=== PATIENT | female | born 1975 | race Caucasian/White ===

== ENCOUNTER 2017-05-01 15:34 | Inpatient (IN) | payer OTHER ==
[~2017-05-01] VITALS: Ht 175.3 cm; Wt 53.8 kg
[~2017-05-01 15:34] MED LIST: OXYC-57 PO
[2017-05-01] MEDS ORDERED: ONDANSETRON INJ 2 MG/ML 2 ML VIAL IV STA ×2 (15:59→18:49)
[2017-05-01] MEDS ORDERED: MoRPHine SULFATE 4 MG/ML 1 ML CARP\\VIAL IV ONE (16:00)
[2017-05-01] MEDS ORDERED: SODIUM CHLORIDE 0.9% 1000ML 1,000 ML IV ONE ×2 (16:00→20:30)
[2017-05-01 16:13] LABS: BASO % 0.2 %; BASO ABS # 0.02 K/uL (0-0.2); COMPLETE YES; EOS % 0.5 %; HEMATOCRIT 47.8 % (37-47); IG% 0.1 %; LYMPH % 20.4 %; LYMPH ABS # 1.87 K/uL (1.2-3.4); MEAN CELL VOLUME 93.2 fL (80-100); MEAN CORPUSCULAR HEMOGLOBIN 31.8 pg (25-34); MEAN CORPUSCULAR HGB CONC 34.1 g/dl (32-36); MEAN PLATELET VOLUME 9.7 fL (7.4-10.4); MONO % 7.3 %; NEUT % 71.5 %; PLATELET COUNT 267 K/uL (130-400); RED BLOOD COUNT 5.13 M/uL (4.2-5.4); WHITE BLOOD COUNT 9.18 K/uL (4.8-10.8)
[2017-05-01 16:24] LABS: BUN/CREATININE RATIO 16.2 (10-20); CALCIUM 9.4 mg/dl (8.5-10.1); CREATININE 0.94 mg/dl (0.60-1.20); MAGNESIUM 2.4 mg/dl (1.8-2.4); POTASSIUM 3.9 mmol/L (3.5-5.1)
[2017-05-01] MEDS ORDERED: CALC500C70 PO (16:29)
[2017-05-01] MEDS ORDERED: MELA3TAB12 PO (16:29)
[2017-05-01] MEDS ORDERED: PRM625 PO (16:29)
[2017-05-01 16:37] LABS: URINE APPEARANCE CLEAR (CLEAR); URINE COLOR DK YELLOW; URINE NITRITE NEG (NEG); URINE PH 5.5 (4.5-7.5); URINE SPECIFIC GRAVITY 1.031 (1.000-1.030); UROBILINOGEN NEG (NEG); ZZUR CULT IF INDIC CLEAN CATCH NO
[2017-05-01 16:56] LABS: MANUAL MICROSCOPIC REQUIRED? NO; REVIEW REQ? NO; URINE BILIRUBIN NEG (NEG)
[2017-05-01] MEDS ORDERED: OPTIRAY 320 IV PRN (17:30)
--- NOTE | 2017-05-01 18:52 | DIAGNOSTIC IMAGING REPORT ---
ABDOMINAL ULTRASOUND, RIGHT UPPER QUADRANT HISTORY: Upper abdominal pain. COMPARISON: CT of the abdomen and pelvis July 26, 2011 and renal ultrasound November 06, 2013. FINDINGS: Liver is sonographically normal. There is no biliary ductal dilatation. The common bile duct measures 4 mm in caliber. The pancreatic body is normal. The head and tail are obscured by overlying bowel gas. No gallstones are identified. There is no gallbladder wall thickening. Trace pericholecystic fluid is noted. Mild to moderate right hydroureteronephrosis has improved since exam of November 06, 2013. IMPRESSION: 1. No gallstones or biliary ductal dilatation. Trace pericholecystic fluid, a nonspecific finding. 2. Mild to moderate right hydroureteronephrosis, significantly improved since renal ultrasound November 06, 2013. Electronically signed by: Dominic William M.D. 05/01/2017 6:50 PM Dictated Date/Time: 05/01/2017 6:41 PM
--- NOTE | 2017-05-01 19:29 | DIAGNOSTIC IMAGING REPORT ---
CT OF THE ABDOMEN AND PELVIS WITH CONTRAST CLINICAL HISTORY: Generalized abdominal pain. Several surgeries in past. COMPARISON STUDY: CT of the abdomen and pelvis April 28, 2011, renal ultrasound and CT of the pelvis November 06, 2013. TECHNIQUE: Following IV administration of 119 mL of Optiray-320, axial images of the abdomen and pelvis were obtained from the lung bases to the proximal femurs. Images were reviewed in the axial, sagittal, and coronal planes. IV contrast was administered without complication. A dose lowering technique was utilized adhering to the principles of ALARA. Oral contrast was administered. CT DOSE: 269.19 mGy.cm FINDINGS: A few subcentimeter hypodense hepatic lesions are too small to characterize but likely reflect cysts. No pneumatosis, free air or portal venous gas is present. The spleen, adrenal glands, left kidney and pancreas are unremarkable. There is no biliary or pancreatic ductal dilatation. Mild right hydronephrosis has significantly improved since renal ultrasound November 06, 2013. There is a small amount of abdominal and pelvic ascites. Postoperative findings consistent with a resection involving the sigmoid colon is noted. The appendix is not visualized. There are several loops of mildly dilated small bowel involving the mid mall bowel. Moderate wall thickening of several small bowel loops is noted. Contrast reaches the cecum. Therefore, there is no evidence for high-grade small bowel obstruction. Postoperative findings within the right groin are noted. There are no suspicious osseous lesions. No abscess identified within the abdomen or pelvis. Major vasculature of the abdomen and pelvis is patent. IMPRESSION: 1. Moderate wall thickening of several small bowel loops within the distal jejunum and proximal ileum. This reflects a nonspecific enteritis. Small to moderate amount of associated abdominal and pelvic ascites. Mild small bowel dilatation may reflect a low-grade partial small bowel obstruction. Oral contrast reaches the colon and therefore there is no evidence for high-grade small bowel obstruction. 2. Significant interval improvement in right hydronephrosis since prior exams. Electronically signed by: Dominic William M.D. 05/01/2017 7:27 PM Dictated Date/Time: 05/01/2017 7:11 PM
--- NOTE | 2017-05-01 21:22 | EMERGENCY ROOM VISIT NOTE ---
History First contact with patient: 15:43 Chief Complaint: ABDOMINAL PAIN Stated Complaint: ABDOMINAL PAIN, VOMITING, NAUSEA Nursing Triage Summary: Pt states abd discomfort started intermittently 3 months ago, now has abd painx 3days, vomited x2, states pain out of 10, positive BSx4, states BMs normal, skin W/D/I. positive pulses History of Present Illness The patient is a 41 year old female who presents to the Emergency Room with complaints of intermittent episodes of abdominal pain for the past few months. Over the past 2 days however the patient is having postprandial abdominal pain. She has had multiple episodes of emesis and is having difficulty tolerating food and fluids at home. The patient has been making normal bowel movements and does not report fever or chills. No recent travel history or antibiotic use. The patient has had several abdominal surgeries in the past including partial colectomy, appendectomy, hysterectomy, and ureter repair surgery. The patient went to an urgent care clinic this morning, and she was referred here because of the significant palpable tenderness on exam to the abdomen. The patient states her pain has never been this bad and she has not been taking anything [id number] for her discomfort. The pain is colicky in nature and currently rated a 2/10. Review of Systems More than 10 systems were reviewed and otherwise negative with the exception of history of present illness. Past Medical/Surgical History Medical Problems: (1) Endometriosis (2) Hydronephrosis (3) Partial bowel obstruction (4) Right salpingo-oophrectomy (5) RLQ abdominal tumor (6) RLQ abdominal tumor removal (7) Ureteral obstruction Surgical Problems: (1) Hx of appendectomy (2) S/P lumpectomy, left breast Family History Diabetes mellitus FH: cancer FH: heart disease Hypertension Kidney disease or stones Social History Smoking Status: Never Smoker Alcohol Use: occasionally Marital Status: in relationship Housing Status: lives with significant other Occupation Status: employed Current/Historical Medications Scheduled Calcium/Vitamin D (Os-Ger 500 Plus D), 2 TAB PO DAILY Estrogens, Conjugated (Premarin), 0.625 MG PO DAILY Melatonin-Pyridoxine (Melatonin), 1 TAB PO DAILY Allergies Coded Allergies: Furosemide (Verified Allergy, Unknown, Palpatations, 11/06/13) Physical Exam Vital Signs Date Time Temp Pulse Resp B/P (MAP) Pulse Ox O2 Delivery O2 Flow Rate FiO2 05/01/17 19:42 37.2 72 16 130/82 99 Room Air 05/01/17 17:15 77 16 101/77 100 Room Air 05/01/17 15:38 36.8 96 18 117/77 98 Room Air Pain Rating (0-10): 2.0 Physical Exam VITALS: Vitals are noted on the nurse's note and reviewed by myself. Vital signs stable. GENERAL: Well-developed, well-nourished, white female, who is in no acute distress and resting comfortably. Patient is cooperative with the examination. HEART: Regular rate and rhythm without murmurs gallops or rubs. LUNGS: Clear to auscultation bilaterally without wheezes, rales or rhonchi. No retractions or accessory muscle use. ABDOMEN: Positive normal bowel sounds x 4. Soft with generalized abdominal tenderness on palpation. This appears worse in the epigastrium as well as the right lower and left lower quadrants. No CVA tenderness. No evidence of peritonitis. MUSCULOSKELETAL: No muscle atrophy, erythema, or edema noted. Full range of motion without joint tenderness in all extremities. Medical Decision & Procedures ER Provider Diagnostic Interpretation: ABDOMINAL ULTRASOUND, RIGHT UPPER QUADRANT HISTORY: Upper abdominal pain. COMPARISON: CT of the abdomen and pelvis July 26, 2011 and renal ultrasound November 06, 2013. FINDINGS: Liver is sonographically normal. There is no biliary ductal dilatation. The common bile duct measures 4 mm in caliber. The pancreatic body is normal. The head and tail are obscured by overlying bowel gas. No gallstones are identified. There is no gallbladder wall thickening. Trace pericholecystic fluid is noted. Mild to moderate right hydroureteronephrosis has improved since exam of November 06, 2013. IMPRESSION: 1. No gallstones or biliary ductal dilatation. Trace pericholecystic fluid, a nonspecific finding. 2. Mild to moderate right hydroureteronephrosis, significantly improved since renal ultrasound November 06, 2013. CT OF THE ABDOMEN AND PELVIS WITH CONTRAST CLINICAL HISTORY: Generalized abdominal pain. Several surgeries in past. COMPARISON STUDY: CT of the abdomen and pelvis April 28, 2011, renal ultrasound and CT of the pelvis November 06, 2013. TECHNIQUE: Following IV administration of 119 mL of Optiray-320, axial images of the abdomen and pelvis were obtained from the lung bases to the proximal femurs. Images were reviewed in the axial, sagittal, and coronal planes. IV contrast was administered without complication. A dose lowering technique was utilized adhering to the principles of ALARA. Oral contrast was administered. CT DOSE: 269.19 mGy.cm FINDINGS: A few subcentimeter hypodense hepatic lesions are too small to characterize but likely reflect cysts. No pneumatosis, free air or portal venous gas is present. The spleen, adrenal glands, left kidney and pancreas are unremarkable. There is no biliary or pancreatic ductal dilatation. Mild right hydronephrosis has significantly improved since renal ultrasound November 06, 2013. There is a small amount of abdominal and pelvic ascites. Postoperative findings consistent with a resection involving the sigmoid colon is noted. The appendix is not visualized. There are several loops of mildly dilated small bowel involving the mid mall bowel. Moderate wall thickening of several small bowel loops is noted. Contrast reaches the cecum. Therefore, there is no evidence for high-grade small bowel obstruction. Postoperative findings within the right groin are noted. There are no suspicious osseous lesions. No abscess identified within the abdomen or pelvis. Major vasculature of the abdomen and pelvis is patent. IMPRESSION: 1. Moderate wall thickening of several small bowel loops within the distal jejunum and proximal ileum. This reflects a nonspecific enteritis. Small to moderate amount of associated abdominal and pelvic ascites. Mild small bowel dilatation may reflect a low-grade partial small bowel obstruction. Oral contrast reaches the colon and therefore there is no evidence for high-grade small bowel obstruction. 2. Significant interval improvement in right hydronephrosis since prior exams. Laboratory Results 05/01/17 15:50 Red Blood Count 5.13, Mean Corpuscular Volume 93.2, Mean Corpuscular Hemoglobin 31.8, Mean Corpuscular Hemoglobin Concent 34.1, Mean Platelet Volume 9.7, Neutrophils (%) (Auto) 71.5, Lymphocytes (%) (Auto) 20.4, Monocytes (%) (Auto) 7.3, Eosinophils (%) (Auto) 0.5, Basophils (%) (Auto) 0.2, Neutrophils # (Auto) 6.56, Lymphocytes # (Auto) 1.87, Monocytes # (Auto) 0.67, Eosinophils # (Auto) 0.05, Basophils # (Auto) 0.02 05/01/17 15:50 Test 05/01/17 15:50 05/01/17 16:09 White Blood Count 9.18 K/uL (4.8-10.8) Red Blood Count 5.13 M/uL (4.2-5.4) Hemoglobin 16.3 g/dL (12.0-16.0) Hematocrit 47.8 % (37-47) Mean Corpuscular Volume 93.2 fL (80-100) Mean Corpuscular Hemoglobin 31.8 pg (25-34) Mean Corpuscular Hemoglobin Concent 34.1 g/dl (32-36) Platelet Count 267 K/uL (130-400) Mean Platelet Volume 9.7 fL (7.4-10.4) Neutrophils (%) (Auto) 71.5 % Lymphocytes (%) (Auto) 20.4 % Monocytes (%) (Auto) 7.3 % Eosinophils (%) (Auto) 0.5 % Basophils (%) (Auto) 0.2 % Neutrophils # (Auto) 6.56 K/uL (1.4-6.5) Lymphocytes # (Auto) 1.87 K/uL (1.2-3.4) Monocytes # (Auto) 0.67 K/uL (0.11-0.59) Eosinophils # (Auto) 0.05 K/uL (0-0.5) Basophils # (Auto) 0.02 K/uL (0-0.2) RDW Standard Deviation 42.8 fL (36.4-46.3) RDW Coefficient of Variation 12.5 % (11.5-14.5) Immature Granulocyte % (Auto) 0.1 % Immature Granulocyte # (Auto) 0.01 K/uL (0.00-0.02) Anion Gap 2.0 mmol/L (3-11) Est Creatinine Clear Calc Drug Dose 68.2 ml/min Estimated GFR () 88.6 Estimated GFR (Non- 76.4 BUN/Creatinine Ratio 16.2 (10-20) Calcium Level 9.4 mg/dl (8.5-10.1) Magnesium Level 2.4 mg/dl (1.8-2.4) Total Bilirubin 0.6 mg/dl (0.2-1) Aspartate Amino Transf (AST/SGOT) 14 U/L (15-37) Alanine Aminotransferase (ALT/SGPT) 20 U/L (12-78) Alkaline Phosphatase 44 U/L (45-117) Total Protein 8.4 gm/dl (6.4-8.2) Albumin 4.2 gm/dl (3.4-5.0) Globulin 4.2 gm/dl (2.5-4.0) Albumin/Globulin Ratio 1.0 (0.9-2) Lipase 116 U/L (73-393) Urine Color DK YELLOW Urine Appearance CLEAR (CLEAR) Urine pH 5.5 (4.5-7.5) Urine Specific [place] 1.031 (1.000-1.030) Urine Protein NEG (NEG) Urine Glucose (UA) NEG (NEG) Urine Ketones 2+ (NEG) Urine Occult Blood NEG (NEG) Urine Nitrite NEG (NEG) Urine Bilirubin NEG (NEG) Urine Urobilinogen NEG (NEG) Urine Leukocyte Esterase NEG (NEG) Medications Administered Medications (Trade) Dose Ordered Sig/Jesica Route Start Time Stop Time Status Last Admin Dose Admin Morphine Sulfate (MoRPHine SULFATE INJ) 4 mg NOW ONCE IV 05/01/17 16:00 05/01/17 16:07 DC 05/01/17 16:23 4 MG Sodium Chloride 1,000 ml @ 999 mls/hr Q1H1M ONCE IV 05/01/17 16:00 05/01/17 17:00 DC 05/01/17 16:00 999 MLS/HR Ondansetron HCl (Zofran Inj) 4 mg NOW STAT IV 05/01/17 15:59 05/01/17 16:07 DC 05/01/17 16:22 4 MG Ondansetron HCl (Zofran Inj) 4 mg NOW STAT IV 05/01/17 18:49 05/01/17 18:51 DC 05/01/17 18:56 4 MG Sodium Chloride 1,000 ml @ 999 mls/hr Q1H1M ONCE IV 05/01/17 20:30 05/01/17 21:30 05/01/17 20:51 999 MLS/HR ED Course Physical exam and history were performed. Nursing notes, EMR, and Medication List were personally reviewed. Patient appears to have generalized abdominal pain worsening over the past 2 days. She is having difficulty eating and drinking because of her discomfort. IV access was established and labs were obtained. The patient was hydrated medicated as above. She has a history of several abdominal surgeries in the past, but does have her gallbladder. Because of the postprandial pain I did elect to perform an upper abdominal ultrasound. I also elected to perform a CT scan with contrast. The patient's blood work is as above and was reviewed. She does not have a significantly elevated white blood cell count, gross anemia, bandemia, or significant elect to light imbalance. She may actually have some hemoconcentration secondary to dehydration as she has not been eating or drinking well. Lipase and transaminases are nondiagnostic. Urine is without obvious signs of infection. The ultrasound did show some trace pericholecystic fluid but no obvious cholecystitis. CT scan shows enteritis including the jejunum and ileum, as well as a likely partial small bowel obstruction. Clinically this does correlate with the patient's symptoms. I discussed the case with both my attending physician, Dr. Hayward, and with the on-call surgeon, Dr. Boyer. We suspect the patient's symptoms will worsen with eating, and she will need to remain nothing by mouth. The patient is not felt to be an emergent surgical candidate, and Dr. Boyer will follow as consult. I did discuss the case with the on-call hospitalist, who agreed to evaluate the patient here in the department for further care and management. Please see their dictation for further patient course, plan, and disposition. The chart was completed utilizing [employer] Speech Voice Recognition Software. Grammatical errors, random word insertions, pronoun errors, and incomplete sentences are an occasional consequence of this system due to software limitations, ambient noise, and hardware issues. Any formal questions or concerns about the content, text, or information contained within the body of this dictation should be directly addressed to the provider for clarification. . Medical Decision Differential diagnosis: Etiologies such as appendicitis, diverticulitis, PUD, biliary pathology, UTI, pancreatitis, obstruction, mesenteric ischemia, aortic pathology, infections, inflammatory bowel disease, renal colic, as well as others were entertained. Impression Primary Impression: Partial bowel obstruction Additional Impressions: Enteritis Abdominal pain Nausea and vomiting Departure Information Referrals Josefina Colón D.O. (PCP) Patient Instructions My [facility] Problem Qualifiers
[2017-05-01] MEDS ORDERED: ZOLPIDEM TARTRATE 5 MG TAB PO PRN (21:30)
[2017-05-01] MEDS ORDERED: ONDANSETRON INJ 2 MG/ML 2 ML VIAL IV PRN (21:30)
[2017-05-01] MEDS ORDERED: POLYETHYLENE (MIRALAX) 17 GM PACK PO PRN (21:30)
[2017-05-01] MEDS ORDERED: MoRPHine SULFATE 2 MG/ML CARP IV PRN (21:45)
[2017-05-01] MEDS ORDERED: BISACODYL 10 MG SUPP PR PRN (21:45)
[2017-05-01 21:48] VITALS: O2SAT 98
[2017-05-01 22:35] VITALS: BP 115/74; PULSE 69; O2SAT 96
--- NOTE | 2017-05-01 22:42 | History and Physical ---
History & Physical Date & Time of Service: May 01, 2017 at 22:16 Chief Complaint: Abdominal Pain, Vomiting, Nausea Primary Care Physician: Josefina Colón D.O. History of Present Illness Source: patient This is a 41yo female with a PMH of multiple abdominal surgeries who presents with intermittent episodes diffuse abdominal pain x 3 days. Describes the pain as burning epigastric pain that radiates downward to LLQ, RLQ and suprapubic area in waves. Pain is a 3/10 in between episodes and is an 8/10 during episodes. Worse with positional changes and after eating. Denies having abdominal pain of this severity in the past. Has not been taking OTC pain medications at home. Associated symptoms include nausea, 2 episodes of vomiting this morning and decreased appetite. Last BM was this morning, which was described as small and hard. No hematochezia. Previous abdominal surgeries include hysterectomy, partial colectomy, ureter reconstruction related to endometriosis, appendectomy. Denies fever, chills, lightheadedness, CP, SOB, hematemesis, melena, diarrhea, LE weakness or swelling. Past Medical/Surgical History Medical Problems: (1) Endometriosis Status: Chronic (2) Hydronephrosis Status: Chronic (3) Partial bowel obstruction Status: Resolved (4) Right salpingo-oophrectomy Status: Resolved (5) RLQ abdominal tumor Status: Resolved (6) RLQ abdominal tumor removal Status: Resolved (7) Ureteral obstruction Status: Chronic Surgical Problems: (1) Hx of appendectomy Status: Resolved (2) S/P lumpectomy, left breast Status: Resolved Family History Diabetes mellitus FH: cancer FH: heart disease Hypertension Kidney disease or stones Social History Smoking Status: Never Smoker Marital Status: in relationship Occupational Status: employed Allergies Coded Allergies: Furosemide (Verified Allergy, Unknown, Palpatations, 11/06/13) Home Medications Scheduled Calcium/Vitamin D (Os-Ger 500 Plus D), 2 TAB PO DAILY Estrogens, Conjugated (Premarin), 0.625 MG PO DAILY Melatonin-Pyridoxine (Melatonin), 1 TAB PO DAILY Review of Systems Ten systems reviewed and negative except as noted in the HPI. Physical Exam Vital Signs Date Time Temp Pulse Resp B/P (MAP) Pulse Ox O2 Delivery O2 Flow Rate FiO2 05/01/17 21:48 36.6 78 18 121/73 98 Room Air 05/01/17 19:42 37.2 72 16 130/82 99 Room Air 05/01/17 17:15 77 16 101/77 100 Room Air 05/01/17 15:38 36.8 96 18 117/77 98 Room Air General Appearance: + moderate distress (Grimaces intermittently, cooperative with exam. ) Head: normocephalic, atraumatic Eyes: normal inspection, PERRL ENT: hearing grossly normal Neck: supple, no adenopathy, thyroid normal, trachea midline Respiratory/Chest: chest non-tender, lungs clear, normal breath sounds, no respiratory distress, no accessory muscle use Cardiovascular: regular rate, rhythm, no murmur, normal peripheral pulses Abdomen/GI: normal bowel sounds (Decreased bowel sounds but present in all 4 quadrants ), soft, no organomegaly, + tenderness (Diffusely TTP. Most tender in LLQ, RLQ, suprapubic area. ) Back: normal inspection, no CVA tenderness Extremities/Musculoskelatal: normal inspection, no calf tenderness, normal capillary refill, no pedal edema Neurologic/Psych: no motor/sensory deficits, alert, normal mood/affect, oriented x 3 Skin: normal color, warm/dry, no rash Diagnostics Laboratory Results Results Past 24 Hours Test 05/01/17 15:50 05/01/17 16:09 Range/Units White Blood Count 9.18 4.8-10.8 K/uL Red Blood Count 5.13 4.2-5.4 M/uL Hemoglobin 16.3 12.0-16.0 g/dL Hematocrit 47.8 37-47 % Mean Corpuscular Volume 93.2 80-100 fL Mean Corpuscular Hemoglobin 31.8 25-34 pg Mean Corpuscular Hemoglobin Concent 34.1 32-36 g/dl Platelet Count 267 130-400 K/uL Mean Platelet Volume 9.7 7.4-10.4 fL Neutrophils (%) (Auto) 71.5 % Lymphocytes (%) (Auto) 20.4 % Monocytes (%) (Auto) 7.3 % Eosinophils (%) (Auto) 0.5 % Basophils (%) (Auto) 0.2 % Neutrophils # (Auto) 6.56 1.4-6.5 K/uL Lymphocytes # (Auto) 1.87 1.2-3.4 K/uL Monocytes # (Auto) 0.67 0.11-0.59 K/uL Eosinophils # (Auto) 0.05 0-0.5 K/uL Basophils # (Auto) 0.02 0-0.2 K/uL RDW Standard Deviation 42.8 36.4-46.3 fL RDW Coefficient of Variation 12.5 11.5-14.5 % Immature Granulocyte % (Auto) 0.1 % Immature Granulocyte # (Auto) 0.01 0.00-0.02 K/uL Sodium Level 136 136-145 mmol/L Potassium Level 3.9 3.5-5.1 mmol/L Chloride Level 102 98-107 mmol/L Carbon Dioxide Level 32 21-32 mmol/L Anion Gap 2.0 3-11 mmol/L Blood Urea Nitrogen 15 7-18 mg/dl Creatinine 0.94 0.60-1.20 mg/dl Est Creatinine Clear Calc Drug Dose 68.2 ml/min Estimated GFR () 88.6 Estimated GFR (Non- 76.4 BUN/Creatinine Ratio 16.2 10-20 Random Glucose 101 70-99 mg/dl Calcium Level 9.4 8.5-10.1 mg/dl Magnesium Level 2.4 1.8-2.4 mg/dl Total Bilirubin 0.6 0.2-1 mg/dl Aspartate Amino Transf (AST/SGOT) 14 15-37 U/L Alanine Aminotransferase (ALT/SGPT) 20 12-78 U/L Alkaline Phosphatase 44 45-117 U/L Total Protein 8.4 6.4-8.2 gm/dl Albumin 4.2 3.4-5.0 gm/dl Globulin 4.2 2.5-4.0 gm/dl Albumin/Globulin Ratio 1.0 0.9-2 Lipase 116 73-393 U/L Urine Color DK YELLOW Urine Appearance CLEAR CLEAR Urine pH 5.5 4.5-7.5 Urine Specific [place] 1.031 1.000-1.030 Urine Protein NEG NEG Urine Glucose (UA) NEG NEG Urine Ketones 2+ NEG Urine Occult Blood NEG NEG Urine Nitrite NEG NEG Urine Bilirubin NEG NEG Urine Urobilinogen NEG NEG Urine Leukocyte Esterase NEG NEG Diagnostic Radiology CT Abd/pelvis: 1. Moderate wall thickening of several small bowel loops within the distal jejunum and proximal ileum. This reflects a nonspecific enteritis. Small to moderate amount of associated abdominal and pelvic ascites. Mild small bowel dilatation may reflect a low-grade partial small bowel obstruction. Oral contrast reaches the colon and therefore there is no evidence for high-grade small bowel obstruction. 2. Significant interval improvement in right hydronephrosis since prior exams. RUQ Ultrasound: IMPRESSION: 1. No gallstones or biliary ductal dilatation. Trace pericholecystic fluid, a nonspecific finding. 2. Mild to moderate right hydroureteronephrosis, significantly improved since renal ultrasound November 06, 2013. Impression Assessment and Plan This is a 41yo female with a PMH of multiple abdominal surgeries who presents with intermittent episodes diffuse abdominal pain x 3 days. Possible partial SBO: -CT abd/pelvis: Mild small bowel dilatation may reflect a low-grade partial small bowel obstruction -Consulted GI, Dr. Boyer to evaluate tomorrow -Continue IVF -Morphine for pain mgmt -Zofran for nausea -NPO -Monitor electrolytes DVT Ppx: dayana obando Code status: FULL PCP: [place] Dispo: Plan to return home once medically stable Attending addendum: Agree with the above H&P; please refer to above for more detail Patient is a 41 yo female who presents to the hospital for complaints of abdominal pain and nausea/vomiting that were initially intermittent for the past 3 days but has now progressed to constant pain with waves of more severe pain radiating down her abdomen. She denies any changes to her bowel habits. She states that she had multiple abdominal surgeries in the past due to severe endometriosis. Cardiac: RR, S1 and S2 auscultated Resp: CTA B/L GI: slightly distended, mildly tender diffusely, hypoactive bowel sounds; no hepatosplenomegaly Partial SBO: -begin with conservative treatment; NPO, IV fluids, pain control -Surgery consult -NG tube if nausea/vomiting and abdominal pain worsen overnight VTE Prophylaxis VTE Risk Assessment Done? Y/N: Yes Risk Level: Low
[2017-05-01] MEDS: SODIUM CHLORIDE 0.9% 1000ML 1,000 ML IV SCH (22:43)
[2017-05-02 00:14] VITALS: Ht 175.3 cm; Wt 53.8 kg
[2017-05-02 06:05] LABS: HEMATOCRIT 37.6 % (37-47); MEAN CELL VOLUME 92.4 fL (80-100); MEAN CORPUSCULAR HEMOGLOBIN 31.7 pg (25-34); MEAN CORPUSCULAR HGB CONC 34.3 g/dl (32-36); MEAN PLATELET VOLUME 9.4 fL (7.4-10.4); PLATELET COUNT 178 K/uL (130-400); RED BLOOD COUNT 4.07 M/uL (4.2-5.4); WHITE BLOOD COUNT 6.36 K/uL (4.8-10.8)
[2017-05-02 06:33] LABS: BUN/CREATININE RATIO 13.4 (10-20); CREATININE 0.7 mg/dl (0.60-1.20); MAGNESIUM 2.2 mg/dl (1.8-2.4); POTASSIUM 3.9 mmol/L (3.5-5.1)
[2017-05-02 07:31] VITALS: BP 105/69; PULSE 70; TEMP 36.9; O2SAT 96
[2017-05-02] MEDS: SODIUM CHLORIDE 0.9% 1000ML 1,000 ML IV SCH ×2 (07:35→17:36)
--- NOTE | 2017-05-02 07:49 | SURGICAL CONSULTATION ---
DATE OF CONSULTATION: 05/02/2017 DATE OF CONSULTATION: 05/02/2017 SUMMARY: I was called by Seferino Mederos , physician product development assistant in the ER approximately 8:00 last night for over the phone advice on Desire who came into the Emergency Room intermittent episodes of abdominal pain in the last few months. Yesterday became more severe. The patient has had multiple abdominal surgeries including appendectomy, colectomy, hysterectomy and uterine repair. They obtained a CAT scan of the abdomen at the time and found to have maybe a segment of small bowel enteritis and could not rule out a partial obstruction, but really things went through without any problem. His concern with my advice was to keep her in the hospital or send her home. He was thinking to send her home. I felt that given her extended history and the severity of the pain that she first came in I recommended that she be admitted to the medical service and possibly get gastroenterology involved. The patient was admitted to the medical service and we were asked to see her. Desire is a very pleasant 41-year-old female who had extensive surgery for endometriomas, first one in [place], second one was done extensively at [facility] where pretty much they completely extensive debulking procedure including a sigmoid colon resection. Prior to that and after that she has had colonoscopy by Dr. Dillon for area on the sigmoid colon. This was about a year and a half ago because her stools were getting smaller and apparently no pathology was found. In the last 3-4 months, she has had intermittent bouts of abdominal pain and really not associated with any specific oral intake, but yesterday the pain was a little bit more severe. She had multiple emesis. PAST SURGICAL HISTORY: Including endometriosis, hydronephrosis, she had right ureter repair due to the obstruction, right salpingo-oophorectomy, hysterectomy, appendectomy, status post lumpectomy left breast. She occasionally uses alcohol but a nonsmoker. PHYSICAL EXAMINATION: GENERAL: As I see her this morning Desire feels a little bit better than she had last night. The pain has subsided. VITAL SIGNS: Her last vitals showed a temperature of 36.9, pulse 69, respirations 16, blood pressure 115/74, O2 sats 96 on room air. She is lying comfortably in bed with no acute distress at this time. She is well hydrated. NECK: No cervical lymphadenopathy obviously. ABDOMEN: Completely benign. She has a midline incision with no evidence of any hernias, although just barely touching her abdominal wall she is experiencing some pain. LABORATORY: She had last night showed a white count 9.18. She had a slight left shift. Chemistry showed a BUN of 15, creatinine 0.94. This morning her BUN is 9, creatinine 0.70. A CAT scan was reviewed. PLAN: At this point, I will order an upper GI with small bowel follow through to visualize more of the enteritis seen by CAT scan but there is nothing surgical that needs to be done at this time and I would strongly recommend as I recommended last night to have GI see the patient also. She has never really followed up from gynecology point of view for the endometriomas that she had in the past. We will follow along with you. RUTHIE
--- NOTE | 2017-05-02 08:14 | DIAGNOSTIC IMAGING REPORT ---
KUB CLINICAL HISTORY: Assess for retained enteric contrast prior to performing small bowel follow-through. FINDINGS: An AP supine abdominal radiograph is correlated with abdominal CT dated 05/01/2017. There is a nonobstructed abdominal bowel gas pattern. There is significant retained enteric contrast throughout the colon. Surgical clips are seen in the right lower quadrant. The bony structures appear intact. IMPRESSION: 1. There is retained enteric contrast throughout the colon. Small bowel follow-through was deferred. 2. There is no radiographic evidence of bowel obstruction. Electronically signed by: Josh Sales M.D. 05/02/2017 8:13 AM Dictated Date/Time: 05/02/2017 8:11 AM
[2017-05-02] MEDS ORDERED: ACETAMINOPHEN 325 MG TAB PO PRN (14:30)
--- NOTE | 2017-05-02 15:09 | Progress Note ---
Progress Note Date of Service May 02, 2017. (Shani Roth CRNP) Progress Note GI consulted to see pt for abd pain. I went to pt's room and found that she is currently undergoing pelvic ultrasound procedure. Will see her tomorrow instead. I did review her chart and labs/imaging studies. In short this is a 41 y/o female w hx of multiple abd surgeries including appendectomy, uterine repair , hysterectomy, endometriosis debulking at [facility] resulting in sigmoid colectomy who presented w c/o lower abd pain. Pain worse w positional changes and eating. She has nausea, vomiting, also constipation symptoms. CBC, CMP grossly unremarkable. Gallbladder u/s w/o signs of cholecystitis, gallstones or CBD dilation. Does have known R hydronephrosis. CT abd/pelvis showed moderate wall thickening of several small bowel loops within the distal jejunum and proximal ileum. This reflects a nonspecific enteritis. Small to moderate amount of associated abdominal and pelvic ascites. Mild small bowel dilatation may reflect a low-grade partial small bowel obstruction. Oral contrast reaches the colon and therefore there is no evidence for high-grade small bowel obstruction. General Surgery (Dr. Boyer) has been consulted, recommended SBFT exam. KUB this AM showed contrast still in colon thus SBFT exam deferred. Pls keep her NPO for now. Avoid narcotics. Repeat KUB in AM. Agree w SBFT exam. Will see her tomorrow. (Shani Roth CRNP)
[2017-05-02 15:18] LABS: PREG INTERNAL NEGATIVE QC NEG CLEAR BACKGROUND; PREG INTERNAL POSITIVE QC POS CONTROL LINE
[2017-05-02 16:00] VITALS: BP 118/74; PULSE 74; TEMP 36.5; O2SAT 98
--- NOTE | 2017-05-02 17:42 | Progress Note ---
Internal Med Progress Note Date of Service: May 02, 2017. Provider Documentation: SUBJECTIVE: patient examined at bedside reports periodically of feeling abdominal discomfort. abdominal discomfort since 3 days ago. not in acute distress. able to sit up and cooperate on exam without pain exacerbation. denies vomiting. denies diarrhea. denies fevers. has minimal per oral intake but able to keep food down when eating. has chronic discomfort with urination but no increase with recent abdominal symptoms. Exam: General-NAD, speaking in full sentences Eyes- EOMI, no jaundice ENT-nontender, no oral or nasal exudates Neck- nontender, no JVD Lungs- no crackles, no wheezing on lung auscultation. no use of accessory muscles Heart- regular rate, S1, S2 Abdomen- soft, no rebound tenderness, tenderness on deep palpation especially towards bladder Extremities- no edema of extremities Neuro- AO x 3 ASSESSMENT & PLAN: A/P: 41 year old F with multiple abdominal surgeries secondary to endometriosis and reports that her surgeries has also been performed on tract here for abdominal pain with suspicion for low-grade partial small bowel obstruction CT abdomen 1. Moderate wall thickening of several small bowel loops within the distal jejunum and proximal ileum. This reflects a nonspecific enteritis. Small to moderate amount of associated abdominal and pelvic ascites. Mild small bowel dilatation may reflect a low-grade partial small bowel obstruction. Oral contrast reaches the colon and therefore there is no evidence for high-grade small bowel obstruction. 2. Significant interval improvement in right hydronephrosis since prior exams. US gallbladder 1. No gallstones or biliary ductal dilatation. Trace pericholecystic fluid, a nonspecific finding. 2. Mild to moderate right hydroureteronephrosis, significantly improved since renal ultrasound November 06, 2013. KUB 1. There is retained enteric contrast throughout the colon. Small bowel follow-through was deferred. 2. There is no radiographic evidence of bowel obstruction. Small bowel follow through could not be performed because patient retaining contrast from CT abdomen test. GI recommends to redo the small bowel follow through and keep NPO until next AM No general Surgery interventions at this time Continue supportive care, antiemetics, GI service prefers to avoid giving narcotics to patient DVT prophylaxis SCDs Vital Signs: Date Time Temp Pulse Resp B/P (MAP) Pulse Ox O2 Delivery O2 Flow Rate FiO2 05/02/17 16:00 36.5 74 16 118/74 (89) 98 Room Air 05/02/17 07:31 36.9 70 16 105/69 (81) 96 Room Air 05/02/17 07:30 Room Air 05/02/17 00:14 Room Air 05/02/17 00:14 Room Air 05/01/17 22:35 69 16 115/74 (88) 96 Room Air 05/01/17 21:48 36.6 78 18 121/73 98 Room Air 05/01/17 19:42 37.2 72 16 130/82 99 Room Air Lab Results: Results Past 24 Hours Test 05/02/17 05:37 05/02/17 14:40 Range/Units White Blood Count 6.36 4.8-10.8 K/uL Red Blood Count 4.07 4.2-5.4 M/uL Hemoglobin 12.9 12.0-16.0 g/dL Hematocrit 37.6 37-47 % Mean Corpuscular Volume 92.4 80-100 fL Mean Corpuscular Hemoglobin 31.7 25-34 pg Mean Corpuscular Hemoglobin Concent 34.3 32-36 g/dl RDW Standard Deviation 42.9 36.4-46.3 fL RDW Coefficient of Variation 12.6 11.5-14.5 % Platelet Count 178 130-400 K/uL Mean Platelet Volume 9.4 7.4-10.4 fL Sodium Level 141 136-145 mmol/L Potassium Level 3.9 3.5-5.1 mmol/L Chloride Level 109 98-107 mmol/L Carbon Dioxide Level 26 21-32 mmol/L Anion Gap 6.0 3-11 mmol/L Blood Urea Nitrogen 9 7-18 mg/dl Creatinine 0.70 0.60-1.20 mg/dl Est Creatinine Clear Calc Drug Dose 91.6 ml/min Estimated GFR () 126.5 Estimated GFR (Non- 109.1 BUN/Creatinine Ratio 13.4 10-20 Random Glucose 99 70-99 mg/dl Calcium Level 8.0 8.5-10.1 mg/dl Magnesium Level 2.2 1.8-2.4 mg/dl Total Bilirubin 0.6 0.2-1 mg/dl Aspartate Amino Transf (AST/SGOT) 9 15-37 U/L Alanine Aminotransferase (ALT/SGPT) 15 12-78 U/L Alkaline Phosphatase 31 45-117 U/L Total Protein 6.1 6.4-8.2 gm/dl Albumin 3.0 3.4-5.0 gm/dl Globulin 3.1 2.5-4.0 gm/dl Albumin/Globulin Ratio 1.0 0.9-2 Human Chorionic Gonadotropin, Qual NEG NEG
[2017-05-02] MEDS ORDERED: ESTROGENS, CONJUGATED 0.625 MG TAB PO SCH (19:00)
[2017-05-02] MEDS ORDERED: NURSING VERBAL MED ORDER ONE (19:15)
[2017-05-02 23:00] VITALS: BP 101/55; PULSE 79; TEMP 36.8; O2SAT 96
[2017-05-03] MEDS: SODIUM CHLORIDE 0.9% 1000ML 1,000 ML IV SCH ×2 (02:40→12:35)
[2017-05-03 07:18] VITALS: BP 101/64; PULSE 75; TEMP 36.7; O2SAT 96
--- NOTE | 2017-05-03 08:01 | DIAGNOSTIC IMAGING REPORT ---
KUB CLINICAL HISTORY: Assess for retained enteric contrast prior to performing small COMPARISON STUDY: 05/02/2017 FINDINGS: Postsurgical changes are visualized. There is a surgical anastomotic suture line within the pelvis. There are right lower quadrant surgical clips. There is extensive contrast within nondilated colon. This would preclude optimal small bowel study. IMPRESSION: Persistent extensive contrast within the colon. This would preclude an optimal small bowel study. Electronically signed by: Sea Ireland M.D. 05/03/2017 8:00 AM Dictated Date/Time: 05/03/2017 7:58 AM
--- NOTE | 2017-05-03 08:32 | Surgery Progress Note ---
Surgery Progress Note Date of Service May 03, 2017. Subjective + feeling well, No nausea Objective Vital Signs: Date Time Temp Pulse Resp B/P (MAP) Pulse Ox O2 Delivery O2 Flow Rate FiO2 05/03/17 07:25 Room Air 05/03/17 07:18 36.7 75 16 101/64 (76) 96 Room Air 05/02/17 23:47 Room Air 05/02/17 23:00 36.8 79 16 101/55 (70) 96 Room Air 05/02/17 16:15 Room Air 05/02/17 16:00 36.5 74 16 118/74 (89) 98 Room Air Abdomen: non distended Laboratory Results: Results Past 24 Hours Test 05/02/17 14:40 Range/Units Human Chorionic Gonadotropin, Qual NEG NEG Diagnostic Interpretation: KUB CLINICAL HISTORY: Assess for retained enteric contrast prior to performing small COMPARISON STUDY: 05/02/2017 FINDINGS: Postsurgical changes are visualized. There is a surgical anastomotic suture line within the pelvis. There are right lower quadrant surgical clips. There is extensive contrast within nondilated colon. This would preclude optimal small bowel study. IMPRESSION: Persistent extensive contrast within the colon. This would preclude an optimal small bowel study. Electronically signed by: Sea Ireland M.D. 05/03/2017 8:00 AM Dictated Date/Time: 05/03/2017 7:58 AM Assessment & Plan enteritis improving residual contrast on KUB, no urgency for SBFT, can be done as an outpatient will start on diet, advance as tolerated seen with Dr. Boyer
[2017-05-03] MEDS ORDERED: ESTROGENS, CONJUGATED 0.625 MG TAB PO SCH (09:00)
--- NOTE | 2017-05-03 12:28 | Gastrointestinal Consultation ---
Gastrointestinal Consultation Date of Consultation: May 03, 2017 Attending Physician: Herrera Conti Consulting Physician: Rodney Dillon Reason for Consultation: Abd pain History of Present Illness Patient is a 41 year old female who presented to ED w c/o abd pain x 3 days prior to admission. For the last 2 months she started having waves of crampy abd pain which started from mid upper abd area then radiates down to bilateral lower quadrants. These pain would last for 30 mins then resolved. However the pain she experienced 3 days ago would not relent. She has mild nausea, no vomiting. Does have constipation on baseline but still moves bowels about once to twice a day. Upon eval in ED, labs looks grossly unremarkable, gallbladder u/ s w/o acute findings. However CT abd/pelvis showed small bowel dilation consistent w non specific enteritis and low grade partial small obstruction. Pt has hx of extensive abd surgeries including total hysterectomy, partial colectomy, appendectomy, endometriosis and scar tissue debulking procedures done at [facility]. She is not on any routine bowel regimen at home. She is passing some flatus, able to move bowels a few times yesterday. No blood in stools. She denies any abd pain, n/v today. She is tolerating diet well, desires to go home. Denies any illicit substance abuses, family or personal hx of IBD, autoimmune diseases. Past Medical/Surgical History Medical Problems: (1) Abdominal pain Status: Acute (2) Enteritis Status: Acute (3) Nausea and vomiting Status: Acute Past Medical History: See above, ureteral obstructions, Past Surgical History: See above, also L breast lumpectomy Family History Diabetes mellitus FH: cancer FH: heart disease Hypertension Kidney disease or stones Social History Smoking Status: Never Smoker Alcohol Use: occasionally Marital Status: in relationship Housing Status: lives with significant other Occupation Status: employed Allergies Coded Allergies: Furosemide (Verified Allergy, Unknown, Palpatations, 11/06/13) Current Medications Home Meds and Scripts Medications Dose Route/Sig Max Daily Dose Days Date Category Melatonin (Melatonin-Pyridoxine) 1 Tab Tab 1 Tab PO DAILY 05/01/17 Reported Os-Ger 500 Plus D (Calcium/Vitamin D) Tab 2 Tab PO DAILY 05/01/17 Reported Premarin (Estrogens Conjugated) 0.625 Mg Tab 0.625 Mg PO DAILY 05/01/17 Reported Review of Systems Constitutional: No fever, No chills Respiratory: No cough, No shortness of breath Cardiac: No chest pain Abdomen: + constipation, No pain, No nausea, No vomiting Physical Exam Date Time Temp Pulse Resp B/P (MAP) Pulse Ox O2 Delivery O2 Flow Rate FiO2 05/03/17 07:25 Room Air 05/03/17 07:18 36.7 75 16 101/64 (76) 96 Room Air 05/02/17 23:47 Room Air 05/02/17 23:00 36.8 79 16 101/55 (70) 96 Room Air 05/02/17 16:15 Room Air 05/02/17 16:00 36.5 74 16 118/74 (89) 98 Room Air General Appearance: no apparent distress, + thin Eyes: normal inspection, PERRL, EOMI Neck: supple, no JVD, trachea midline Respiratory/Chest: normal breath sounds, no respiratory distress, no accessory muscle use Cardiovascular: regular rate, rhythm, no gallop, no murmur Abdomen: normal bowel sounds, non tender, soft Extremities: normal inspection, no pedal edema, no calf tenderness Neurologic/Psych: alert, normal mood/affect, oriented x 3 Skin: normal color, no jaundice, no rash Laboratory Results Last 24 Hours Test 05/02/17 14:40 05/03/17 11:41 Human Chorionic Gonadotropin, Qual NEG Impression Patient is a 41 year old female w abd pain, CT finding of partial small bowel obstruction. ? enteritis though this is not likely given no diarrhea. She has hx of endometriosis, s/p multiple abd surgeries and debulking procedures due to endometriosis complications as noted in HPI above. Suspect scar tissue involvement related to her PSBO. Currently pain free, also denies any n/v. Moving bowels though small stools, passing some flatus. Abd exam benign, + bowel sounds. Plan - Advance diet as tolerated but would recommend low residue/fiber diet. - OK for DC home from GI standpoint w bowel regimen of Miralax 17g daily and Bisacodyl 10mg qHS. Would help set up MR enterography to be done in outpt setting 1 week's time, and small bowel enteroscopy in 2 week's time. - C1q esterase inhibitor lab obtained today to r/o angioedema. I have seen, examined and agree with the plan as outlined by MICHAEL Peraza as above. -exam reveals soft abd
[2017-05-03] MEDS ORDERED: POLY335019 PO (14:56)
[2017-05-03] MEDS ORDERED: BISA1SUP4 PR (14:56)
--- NOTE | 2017-05-03 15:00 | Discharge Instructions ---
Discharge Instructions Date of Service May 03, 2017. Admission Reason for Admission: Abdominal Pain, Constipation Discharge Discharge Diagnosis / Problem: partial SBO Discharge Goals Goal(s): Prevent Disease Progression Activity Recommendations Activity Limitations: per Instructions/Follow-up section . Instructions / Follow-Up Instructions / Follow-Up Please take all medications as instructed. Miralax and Bisacodyl suppositories have been provided to you for constipation to use as needed. You have a follow-up appointment with Dr. Colón on 05/10@ 9:35am for follow-up from this hospitalization. Additionally you will be contacted by the [facility] Gastroenterology office to setup your MRI exam as outpatient. Dr. Rodney Dillon and MICHAEL Du saw you in the hospital. It was a pleasure taking care of you! Call if you have any questions or problems. You can reach a [facility] hospitalist on duty at [facility] 24 hours a day by calling [phone]. Take care of yourself. Louisa Forrest, [facility] Center[facility] Current Hospital Diet Patient's current hospital diet: Full Liquid Diet Discharge Diet Recommended Diet: Low Fiber Diet Pending Studies Studies pending at discharge: yes List of pending studies: C1 esterase inhibitor Medical Emergencies . Who to Call and When: Medical Emergencies: If at any time you feel your situation is an emergency, please call 911 immediately. . Non-Emergent Contact Non-Emergency issues call your: Primary Care Provider . . "Provider Documentation" section prepared by Louisa Forrest. . VTE Core Measure Inpt VTE Proph given/why not?: SCD's
[2017-05-03 16:15] VITALS: BP 101/64; PULSE 75; TEMP 36.7; O2SAT 96
--- NOTE | 2017-05-04 23:07 | Discharge Summary ---
Discharge Summary Date of Service May 04, 2017. Discharge Summary Admission Date: May 01, 2017 at 21:26 Discharge Date: May 03, 2017 Discharge Disposition: Home Principal Diagnosis: Abdominal pain 2/2 partial SBO Procedures: None. Vaccinations: None. Consultations: GI General Surgery Pending Studies/Follow-Up: see instructions below. Medication Reconciliation New Medications: Bisacodyl (Bisacodyl Laxative) 10 Mg Sup 10 MG HI HS PRN for Constipation for 10 Days, #10 SUPP 3 Refills Polyethylene Glycol 3350 (Miralax) 1 Pow Pow 17 GM PO DAILY, #527 GM Continued Medications: Calcium/Vitamin D (Os-Ger 500 Plus D) Tab 2 TAB PO DAILY, TAB Estrogens, Conjugated (Premarin) 0.625 Mg Tab 0.625 MG PO DAILY, TAB Melatonin-Pyridoxine (Melatonin) 1 Tab Tab 1 TAB PO DAILY Admission Information HPI (per Admitting provider): This is a 41yo female with a PMH of multiple abdominal surgeries who presents with intermittent episodes diffuse abdominal pain x 3 days. Describes the pain as burning epigastric pain that radiates downward to LLQ, RLQ and suprapubic area in waves. Pain is a 3/10 in between episodes and is an 8/10 during episodes. Worse with positional changes and after eating. Denies having abdominal pain of this severity in the past. Has not been taking OTC pain medications at home. Associated symptoms include nausea, 2 episodes of vomiting this morning and decreased appetite. Last BM was this morning, which was described as small and hard. No hematochezia. Previous abdominal surgeries include hysterectomy, partial colectomy, ureter reconstruction related to endometriosis, appendectomy. Denies fever, chills, lightheadedness, CP, SOB, hematemesis, melena, diarrhea, LE weakness or swelling. Physical Exam (per Admitting): General Appearance: + moderate distress (Grimaces intermittently, cooperative with exam. ) Head: normocephalic, atraumatic Eyes: normal inspection, PERRL ENT: hearing grossly normal Neck: supple, no adenopathy, thyroid normal, trachea midline Respiratory/Chest: chest non-tender, lungs clear, normal breath sounds, no respiratory distress, no accessory muscle use Cardiovascular: regular rate, rhythm, no murmur, normal peripheral pulses Abdomen/GI: normal bowel sounds (Decreased bowel sounds but present in all 4 quadrants ), soft, no organomegaly, + tenderness (Diffusely TTP. Most tender in LLQ, RLQ, suprapubic area. ) Back: normal inspection, no CVA tenderness Extremities/Musculoskelatal: normal inspection, no calf tenderness, normal capillary refill, no pedal edema Neurologic/Psych: no motor/sensory deficits, alert, normal mood/affect, oriented x 3 Skin: normal color, warm/dry, no rash Hospital Course A/P: 41 year old F with multiple abdominal surgeries secondary to endometriosis and reports that her surgeries has also been performed on tract here for abdominal pain with suspicion for low-grade partial small bowel obstruction CT abdomen 1. Moderate wall thickening of several small bowel loops within the distal jejunum and proximal ileum. This reflects a nonspecific enteritis. Small to moderate amount of associated abdominal and pelvic ascites. Mild small bowel dilatation may reflect a low-grade partial small bowel obstruction. Oral contrast reaches the colon and therefore there is no evidence for high-grade small bowel obstruction. 2. Significant interval improvement in right hydronephrosis since prior exams. US gallbladder 1. No gallstones or biliary ductal dilatation. Trace pericholecystic fluid, a nonspecific finding. 2. Mild to moderate right hydroureteronephrosis, significantly improved since renal ultrasound November 06, 2013. KUB 1. There is retained enteric contrast throughout the colon. Small bowel follow-through was deferred. 2. There is no radiographic evidence of bowel obstruction. Small bowel follow through could not be performed because patient retaining contrast from CT abdomen test. GI recommends recommends outpatient MRI with recent history of abdominal pain episodes. No general Surgery interventions at this time Pt was tolerating solid foods prior to leaving. On day of discharge she was afebrile and hemodynamically stable with a significant decrease in her abdominal discomfort on exam. She was sent home in stable condition with close GI follow-up. Total time spent on discharge = 60 minutes This includes examination of the patient, discharge planning, medication reconciliation, and communication with other providers. Discharge Instructions [address] [address] Discharge Medical Patient Name: Desire Nicolas Unit Number: [id number] Date of : 1975 Patient Status: Discharged Inpatient Attending Doctor: Herrera Conti M.D. DI: Medical v4 Discharge Instructions Date of Service May 03, 2017. Admission Reason for Admission: Abdominal Pain, Constipation Discharge Discharge Diagnosis / Problem: partial SBO Discharge Goals Goal(s): Prevent Disease Progression Activity Recommendations Activity Limitations: per Instructions/Follow-up section . Instructions / Follow-Up Instructions / Follow-Up Please take all medications as instructed. Miralax and Bisacodyl suppositories have been provided to you for constipation to use as needed. You have a follow-up appointment with Dr. Colón on 05/10@ 9:35am for follow-up from this hospitalization. Additionally you will be contacted by the [facility] Gastroenterology office to setup your MRI exam as outpatient. Dr. Rodney Dillon and MICHAEL Du saw you in the hospital. It was a pleasure taking care of you! Call if you have any questions or problems. You can reach a [facility] hospitalist on duty at [facility] 24 hours a day by calling [phone]. Take care of yourself. Louisa Forrest, [facility] Hospitalist Current Hospital Diet Patient's current hospital diet: Full Liquid Diet Discharge Diet Recommended Diet: Low Fiber Diet Pending Studies Studies pending at discharge: yes List of pending studies: C1 esterase inhibitor Medical Emergencies . Who to Call and When: Medical Emergencies: If at any time you feel your situation is an emergency, please call 911 immediately. . Non-Emergent Contact Non-Emergency issues call your: Primary Care Provider . . "Provider Documentation" section prepared by Louisa Forrest. . VTE Core Measure Inpt VTE Proph given/why not?: SCD's Additional Copies To Josefina Colón D.O.
== END 2017-05-03 16:40 | disposition home or self-care (01) | DRG 390 ==
LOC: C.EDB 15:35 → C.MSW 21:26 → ENRESERV 21:40
PROVIDERS: ADMIT Internal Medicine; ATTEND Hospitalist
DX: K56.60 Unspecified intestinal obstruction (principal); K52.9 Noninfective gastroenteritis and colitis, unspecified; N80.9 Endometriosis, unspecified

== ENCOUNTER → 2017-05-13 | Outpatient (CLI) | payer OTHER ==
[~2017-05-13] MED LIST changes: +BISA1SUP4 PR; +CALC500C70 PO; +MELA3TAB12 PO; -OXYC-57 PO; +POLY335019 PO; +PRM625 PO
--- NOTE | 2017-05-13 14:18 | DIAGNOSTIC IMAGING REPORT ---
MRI OF THE ABDOMEN AND PELVIS WITH AND WITHOUT CONTRAST ENTEROGRAPHY PROTOCOL CLINICAL HISTORY: Partial small bowel obstruction. Abdominal pain. COMPARISON STUDY: CT of the abdomen and pelvis May 01, 2017. TECHNIQUE: The patient ingested 2 bottles of Volumen. Utilizing a 1.5 Sujata magnet and dedicated coil, multiplanar, multi echo imaging of the abdomen and pelvis was performed pre and postcontrast administration. Injection of 5.5 cc of Gadavist IV was uneventful. Post contrast imaging was performed utilizing dynamic enhancement. Glucagon was administered IM as per protocol. FINDINGS: A 7 mm right hepatic lobe lesion either reflects a tiny cyst or hemangioma. This is benign. There is no biliary or pancreatic ductal dilatation. The spleen, adrenal glands, left kidney and pancreas are normal. Mild right collecting system dilatation is similar to CT of May 01, 2017. No ascites is identified. No small bowel wall thickening is identified. Small bowel dilatation shown on CT of May 01, 2017 has resolved. Wall thickening of the small bowel shown on that exam has also resolved. No abscess or fistula is identified on this examination. Major vasculature of the abdomen and pelvis is patent. Susceptibility artifact within lower abdomen and pelvis is postsurgical. The uterus and ovaries are not visualized. These are surgically absent. Visualized skeletal structures are unremarkable. No abdominal or pelvic lymphadenopathy is identified. No T1 hyperintense lesions are identified to suggest endometrial implants. IMPRESSION: 1. Interval resolution of small bowel wall thickening, small bowel dilatation and ascites shown on CT of May 01, 2017. 2. No evidence for a small bowel obstruction. No fluid collection to suggest abscess. 3. Mild right collecting system dilatation which is unchanged since prior CT. Electronically signed by: Dominic William M.D. 05/13/2017 2:17 PM Dictated Date/Time: 05/13/2017 1:57 PM
== END | disposition home or self-care (01) ==
LOC: C.MRIBC 11:17
PROVIDERS: ATTEND Internal Medicine
DX: K56.69 Other intestinal obstruction (principal)

== ENCOUNTER 2020-06-22 07:55 | Inpatient (IN) ==
[2020-06-22] MEDS ORDERED: ONDANSETRON INJ 2 MG/ML 2 ML VIAL IV STA ×2 (08:49→13:42)
[2020-06-22] MEDS ORDERED: KETOROLAC TROMETHAMINE 15 MG/ML VIAL IV STA (08:49)
[2020-06-22] MEDS ORDERED: SODIUM CHLORIDE 0.9% 1000ML 1,000 ML IV ONE (08:49)
--- NOTE | 2020-06-22 08:56 | Emergency Department Note ---
Impression & Plan Pyelonephritis of right kidney, Hydroureteronephrosis, Acute right flank pain ED Provider Note CHIEF COMPLAINT: Right flank pain, urinary symptoms HISTORY OF PRESENTING ILLNESS: This is a 44-year-old female with past medical history significant for endometriosis resulting in total hysterectomy with bowel resection and right ureteral reimplantation surgery 5 years ago, who presents to the emergency department today for complaint of right-sided flank pain that has been ongoing for the past 2 days. Patient states she initially started with some burning with urination 3 days ago, she states this is not unusual since her surgery, but the symptoms got progressively worse and developed into some right lower abdominal and right flank pain which has been constant, dull ache with occasional sharp stabbing pains, and she rates the pain 8/10. She took Aleve around 6 PM last night, this seemed to help the pain somewhat, but she has not taken anything today. She has had nausea but no vomiting. She has chills but no fever. She denies any persistent history of urinary tract infections, but states that she has had pyelonephritis once before and this feels similar. She denies any history of kidney stones. She denies any chest pain, shortness of breath, cough, hemoptysis, URI symptoms, diarrhea or constipation, loss of taste or smell. She denies any recent travel or exposures concerning for COVID-19. REVIEW OF SYSTEMS: A complete 10 point review of systems was reviewed with the patient with pertinent positives and negatives as per history of present illness. All else were negative. PAST MEDICAL HISTORY: Endometriosis, mast cell activation syndrome with angioedema, history of bowel resection, GERD SOCIAL HISTORY: Lives at home with her significant other, she denies tobacco use ALLERGIES: Reviewed in chart and with the patient PHYSICAL EXAM: CONSTITUTIONAL: Pleasant and cooperative. Nontoxic-appearing and in no acute distress. Mildly dehydrated, but otherwise well appearing and well nourished. HEENT: Normocephalic, atraumatic. Pharynx normal. Tacky mucous membranes. NECK: Supple, full active range of motion without discomfort. RESPIRATORY: Clear to auscultation bilaterally with no wheezing, crackles, rhonchi or stridor. Equal expansion bilaterally. CARDIOVASCULAR: Regular rate and rhythm with no murmurs, rubs or gallops. Normal peripheral perfusion. No edema. GASTROINTESTINAL: Tender to palpation in the right mid and lower abdomen and right flank, no rebound tenderness or guarding. The remainder of the abdomen is nontender, nondistended and soft. No palpable masses or HSM. Bowel sounds present in all quadrants. Right-sided CVA tenderness to percussion, no left- sided CVA tenderness. Well-healed midline surgical scars noted on the abdomen. MUSCULOSKELETAL: Full range of motion of all joints without discomfort. INTEGUMENTARY: No rash or other significant dermatologic conditions noted. NEUROLOGIC: Alert and oriented X 4 with normal affect. Normal strength and sensation in all 4 extremities. Normal speech. Normal gait observed. ED COURSE AND MEDICAL DECISION MAKING: CC: Patient presenting with complaint of right flank pain and urinary symptoms DIFFERENTIAL DIAGNOSIS: Includes, but not limited to UTI, pyelonephritis, ureteral stone, hydroureteronephrosis, acute kidney injury, dehydration, intra- abdominal abscess, bowel obstruction, surgical adhesions, among others. INTERPRETATION OF LABS: No leukocytosis, no anemia, normal platelets, no significant electrolyte abnormalities, mildly elevated BUN with a normal creatinine, normal liver enzymes and lipase. UA appears consistent with a UTI noting 3+ blood, 3+ leukocyte esterase, positive nitrite, greater than 30 WBCs and 4+ bacteria. A urine culture is pending. IMAGING: RENAL ULTRASOUND CLINICAL HISTORY: Right flank pain. COMPARISON STUDY: MRI of the abdomen and pelvis May 13, 2017. Renal ultrasound March 10, 2020. TECHNIQUE: Sonography of the kidneys and the urinary bladder was performed. FINDINGS: Right kidney measures 12.8 cm maximal dimension and the left measures 11.2 cm. There is no left hydronephrosis. There has been interval development of moderate right hydroureteronephrosis since ultrasound of March 10, 2020. Etiology for this dilatation is not clear on this examination. No renal calculi or masses are identified. Right ureteral jet was not visualized. Left ureteral jet was identified. IMPRESSION: 1. Development of moderate right hydroureteronephrosis since ultrasound of March 10, 2020. Etiology for dilatation not clear on this exam. 2. No left hydronephrosis. ----- ABDOMEN AND PELVIS CT WITH IV CONTRAST CT DOSE: 352.79 mGycm HISTORY: Acute right-sided flank pain with right-sided hydronephrosis right flank pain, hydronephrosis TECHNIQUE: Multiaxial CT images of the abdomen and pelvis were performed following the IV administration of 93 cc of Optiray 320, A dose lowering technique was utilized adhering to the principles of ALARA. COMPARISON STUDY: Renal ultrasound of same day and also 03/10/2020, CT abdomen and pelvis 05/01/2017 FINDINGS: Clear lung bases. There is no pneumatosis or pneumoperitoneum. The imaged inferior cardiac chambers are unremarkable. The spleen, pancreas and adrenal glands are unremarkable. Mild gallbladder distention. Unchanged 6 mm right hepatic lobe hypodensity suggestive of a probable cyst. Additional probable cyst of the left hepatic lobe, 6 mm. There is patency of the hepatic and portal veins. No biliary ductal dilation. Normal left kidney. There is moderate to severe right-sided hydroureteronephrosis with subtle ill-defined decreased enhancement of the superior pole right kidney. Urothelial thickening and enhancement of the right ureter with periureteral. There is dilation of the right ureter to the level of the reimplanted ureterovesicular junction. No obstructing calculus or lesion identified. Delayed right-sided nephrogram. Circumferential urinary bladder wall thickening with mucosal hyperemia and perivesicular stranding. Abnormal orientation of the urinary bladder within the right hemipelvis is new from prior and also likely postoperative. Hysterectomy. No adnexal mass lesions identified. There is no abdominal aortic aneurysm. No adenopathy. Surgical clips are noted within the right inguinal tissues. There is no bowel obstruction or bowel wall thickening. Postoperative changes of partial sigmoid colon resection with colocolonic anastomosis. The appendix is r eportedly surgically absent. Scattered small bowel air-fluid levels are likely physiologic. Tiny fat filled periumbilical hernia. Lungs appear intact. IMPRESSION: 1. Moderate to severe right-sided hydroureteronephrosis and delayed nephrogram with dilation of the right ureter extending to the level of the reimplanted ureterovesicular junction. No obstructing calculus identified. These findings ma y be secondary to a distal ureteral stricture or urothelial lesion. 2. Urothelial thickening and enhancement of the right ureter may be reactive or represent superimposed infectious ureteritis. 3. Urinary bladder wall thickening with perivesicular stranding may represent cystitis. Correlate with urinalysis. 4. No bowel obstruction or bowel wall thickening. 5. Additional findings as above. MEDICATION RECONCILIATION: I attest that I have personally reviewed the patient's current medication list. INITIAL VITAL SIGNS REVIEW: I reviewed the patient's initial vital signs and interpret them as follows: T: Afebrile; BP: Normotensive; HR: Tachycardic; RR: Within normal limits; Pulse Ox: Within normal limits on room air. Blood pressure screening: The patient was found to have normal blood pressure on screening and does not require follow-up for repeat blood pressure check. MDM SUMMARY: Patient was evaluated at bedside, history and physical exam performed. Patient is alert and oriented, in no acute distress, resting calmly in stretcher. She is afebrile and nontoxic-appearing, but does appear mildly dehydrated and is noted to be tachycardic initially. She has tenderness to palpation in the right flank and lower abdomen and positive right CVA tenderness. No acute abdomen. Given the patient's extensive surgical history and presentation, I did feel that a CT was warranted to evaluate her pain. The patient notes that she has had several CTs in the past and preferred to start with an ultrasound, utilizing shared decision-making with the patient this was ordered. Orders were placed at bedside for labs, UA and urine culture, IV fluid bolus for hydration, IV Toradol for pain, IV Zofran for nausea, and renal ultrasound to evaluate for right flank pain. Nursing staff notified me that the urine dip was positive for UTI, IV Rocephin 2 g was ordered. Patient discussed with Dr. Da Silva, who agrees with my assessment, plan, and disposition. Labs and imaging reviewed as above, no leukocytosis, no appearance of kidney injury. UA also appears consistent with a UTI, urine culture pending. Ultrasound noted new development of right-sided hydroureteronephrosis compared to an ultrasound from February 2020. I discussed with the patient the findings on her ultrasound and did recommend that we do perform a CT at this time to ensure there is no ureteral stone or other surgical cause for the hydroureteronephrosis, especially given the presence of infection in the urine. She was agreeable to this. CT reviewed as above, again noting severe right-sided hydroureteronephrosis extending to the level of the ureterovesicular junction with no evidence for calculus. There is also urothelial thickening of the right ureter and urinary bladder wall thickening consistent with infection. The patient has been well-appearing and does not have a leukocytosis or acute kidney injury on labs, and she would prefer to go home, I did feel that this was most likely reasonable. However, the patient did develop a fever of 39.4 and became tachycardic again, she was no longer felt to be stable for discharge. She was given p.o. Tylenol for the fever. She otherwise remained stable and is not hypotensive or hypoxic. I spoke on the phone with Tessa Han, nurse practitioner with [facility] urology, who agreed with admission and they will plan to see the patient tomorrow for possible procedure. I spoke with Dr. Maya, [facility] Hospitalist, who agrees to evaluate the patient for admission. Patient reassessed multiple times throughout ED stay, she has remained hemodynamically stable and her pain is well controlled. The patient was updated on all results and plan for admission, all questions were answered to the best of my ability and she was agreeable to this plan. Patient was stable at time of admission. The chart was completed utilizing [employer] Speech voice recognition software. Grammatical errors, random word insertions, pronoun errors, and incomplete sentences are an occasional consequence of this system due to software limitations, ambient noise, and hardware issues. Any formal questions or concerns about the content, text, or information contained within the body of this dictation should be directly addressed to the nurse practitioner for clarification. Past Med/Surg History Medical History (Updated 06/22/20 @ 15:04 by Godwin Maya MD) Endometriosis Osteopenia Premature surgical menopause Surgical History H/O bilateral salpingo-oophorectomy H/O total hysterectomy Hx of appendectomy S/P endometrial ablation S/P laparoscopic-assisted sigmoidectomy S/P lumpectomy, left breast S/P ureteral reimplantation Family History Grandmother Breast cancer Grandfather Myocardial infarction Father Prostate cancer Heart disease Alcohol abuse Mother Alcohol abuse Anxiety Depression Brother Depression Aunt Pancreatic cancer Denies family history of Ovarian cancer Colorectal cancer Social History Smoking Status: Never smoker Second Hand Exposure: Yes (childhood); Do You Dip or Chew Tobacco: No; Hx Alcohol Use: No Hx Substance Use: No Preferred Language: Afghan Communication Ability: Effective Visual Impairment: No Limitations Hearing Ability: Normal Dog Trainer Required: No Beliefs That Will Affect Care: None marital status: single Current Living Situation: Significant Other current occupational status: employed current occupation: self employed- [employer] Other Information That Helps Us Care for You: No Feels Safe at Home: Yes Safety Concerns: Feels Safe At This Time Dental Care, Regularly: No Physical Activity Frequency: 1-2 Times per Week Assistive Devices: None Assistive Devices Comment: Did not bring Allergies Allergies Allergy/AdvReac Type Severity Reaction Status Date / Time furosemide AdvReac Intermediate Palpatation Verified 06/22/20 08:24 s Home Meds Home Medications Medication Instructions Recorded Confirmed multivitamin 1 tab PO DAILY 02/24/20 06/22/20 cholecalciferol (vitamin D3) 125 mcg PO DAILY 03/11/20 06/22/20 [Vitamin D3] vitamin K2 40 mcg PO DAILY 03/11/20 06/22/20 cetirizine 10 mg capsule 10 mg PO DAILY 04/27/20 06/22/20 calcium carbonate-vitamin D3 1 tab PO DAILY 06/22/20 06/22/20 [Calcium + D] Previous Rx's Medication Instructions Recorded famotidine 40 mg tablet 40 mg PO BID #60 tab 04/27/20 epinephrine 0.3 mg/0.3 mL 0.3 mg IM Q10M PRN #2 ea 05/05/20 injection, auto-injector Results & Data (ED) Vital Signs Vital Signs - 24 hr 06/22/20 08:07 06/22/20 09:10 06/22/20 09:11 Temperature 37.0 C Temperature Source Oral Pulse Rate 118 H Pulse Rate [Finger] 92 H Respiratory Rate 20 20 Respiratory Effort / Characteristics Non-Labored Respiratory Depth Normal Blood Pressure 108/65 Blood Pressure [Right Arm] 110/73 Blood Pressure Mean 79 Blood Pressure Mean [Right Arm] 85 Pulse Oximetry 98 98 98 Oxygen Delivery Method Room Air Room Air Room Air Sepsis Recent Fever Within 48 Hours No Sepsis New/Unexplained Change in Mental Status N/A Sepsis Action Taken by Nursing No Action Required 06/22/20 10:38 06/22/20 12:20 06/22/20 13:41 Temperature 39.4 C H Temperature Source Oral Pulse Rate Pulse Rate [Finger] 94 H 78 118 H Respiratory Rate 20 20 20 Respiratory Effort / Characteristics Respiratory Depth Blood Pressure Blood Pressure [Right Arm] 108/67 106/72 103/55 L Blood Pressure Mean Blood Pressure Mean [Right Arm] 80 83 71 Pulse Oximetry 98 98 98 Oxygen Delivery Method Room Air Room Air Room Air Sepsis Recent Fever Within 48 Hours Sepsis New/Unexplained Change in Mental Status Sepsis Action Taken by Nursing Laboratory Data Result diagrams: 06/22/20 09:00 06/22/20 09:00 Lab Results 06/22/20 06/22/20 06/22/20 Range/Units 08:20 09:00 09:00 WBC 9.21 (4.8-10.8) K/uL RBC 4.11 L (4.2-5.4) M/uL Hgb 12.9 (12.0-16.0) g/dL Hct 37.4 (37-47) % MCV 91.0 (80-100) fL MCH 31.4 (25-34) pg MCHC 34.5 (32-36) g/dL RDW Std Deviation 42.4 (36.4-46.3) fL RDW Coeff of Leeann 12.7 (11.5-14.5) % Plt Count 184 (130-400) K/uL MPV 9.4 (7.4-10.4) fL Immature Gran % (Auto) 0.2 % Neut % (Auto) 85.6 % Lymph % (Auto) 7.4 % [place] % (Auto) 6.5 % Eos % (Auto) 0.2 % Baso % (Auto) 0.1 % Neut # (Auto) 7.88 H (1.4-6.5) K/uL Lymph # (Auto) 0.68 L (1.2-3.4) K/uL [place] # (Auto) 0.60 H (0.11-0.59) K/uL Eos # (Auto) 0.02 (0-0.5) K/uL Baso # (Auto) 0.01 (0-0.2) K/uL Immature Gran # (Auto) 0.02 (0.00-0.02) K/uL Sodium 137 (136-145) mmol/L Potassium 3.7 (3.5-5.1) mmol/L Chloride 106 (98-107) mmol/L Carbon Dioxide 26 (21-32) mmol/L Anion Gap 6.0 (3-11) BUN 20 H (7-18) mg/dl Creatinine 0.76 (0.6-1.2) mg/dl Est Cr Clr Drug Dosing 95.0 ml/min Est GFR ( Amer) 112.1 Est GFR (Non-Af Amer) 96.8 BUN/Creatinine Ratio 26.2 H (10-20) Glucose 103 H (70-99) mg/dl Calcium 9.3 (8.5-10.1) mg/dl Total Bilirubin 0.4 (0.2-1) mg/dl AST 14 L (15-37) U/L ALT 29 (12-78) U/L Alkaline Phosphatase 53 (45-117) U/L Total Protein 7.8 (6.4-8.2) gm/dl Albumin 3.9 (3.4-5.0) gm/dl Globulin 3.9 (2.5-4.0) gm/dl Albumin/Globulin Ratio 1.0 (0.9-2) Lipase 108 (73-393) U/L Urine Color Yellow Urine Appearance Cloudy A (Clear) Urine pH 7.5 (4.5-7.5) Ur Specific [place] 1.015 (1.000-1.030) Urine Protein 2+ H (Negative) Urine Glucose (UA) Negative (Negative) Urine Ketones Negative (Negative) Urine Blood 3+ H (Negative) Urine Nitrite Positive A (Negative) Urine Bilirubin Negative (Negative) Urine Urobilinogen Negative (Negative) Ur Leukocyte Esterase 3+ H (Negative) Urine WBC (Auto) >30 H (0-5) /hpf Urine RBC (Auto) >30 H (0-4) /hpf U Hyaline Cast (Auto) 1-5 (0-5) /lpf U Epithel Cells (Auto) 10-20 H (0-5) /lpf Urine Bacteria (Auto) 4+ H (Negative) Administered Medications Potassium Chloride/Sodium Chloride (Normal Saline W/20 Meq Kcl) 20 meq in 1,000 mls @ 150 mls/hr IV .Q6H40M [place] Stop: 07/22/20 16:29 Last Admin: 06/22/20 16:36 Dose: 150 mls/hr Documented by: [id number] Discontinued Medications Acetaminophen (Acetaminophen 500 Mg Tab) 1,000 mg PO NOW STA Stop: 06/22/20 13:43 Last Admin: 06/22/20 13:49 Dose: 1,000 mg Documented by: [id number] Sodium Chloride (Nss 1000ml) 1,000 mls @ 999 mls/hr IV .Q1H1M ONE Stop: 06/22/20 09:49 Last Infusion: 06/22/20 10:10 Dose: 0 mls/hr Documented by: [id number] Admin: 06/22/20 09:08 Dose: 999 mls/hr Documented by: [id number] Ceftriaxone Sodium (Rocephin) 2,000 mg in 70 mls @ 140 mls/hr IV NOW STA Stop: 06/22/20 10:24 Last Infusion: 06/22/20 11:07 Dose: 0 mls/hr Documented by: [id number] Admin: 06/22/20 10:37 Dose: 140 mls/hr Documented by: [id number] Ioversol (Ioversol 100ml) 93 ml IV ONCE ONE Stop: 06/22/20 12:38 Last Admin: 06/22/20 12:37 Dose: 93 ml Documented by: [id number] Ketorolac Tromethamine (Ketorolac Tromethamine 15 Mg/Ml Vial) 15 mg IV NOW STA Stop: 06/22/20 08:50 Last Admin: 06/22/20 09:08 Dose: 15 mg Documented by: [id number] Ondansetron HCl (Ondansetron Inj 2 Mg/Ml 2 Ml Vial) 4 mg IV NOW STA Stop: 06/22/20 08:50 Last Admin: 06/22/20 09:08 Dose: 4 mg Documented by: [id number] Ondansetron HCl (Ondansetron Inj 2 Mg/Ml 2 Ml Vial) 4 mg IV NOW STA Stop: 06/22/20 13:43 Last Admin: 06/22/20 13:49 Dose: 4 mg Documented by: [id number] Trimethoprim/Sulfamethoxazole (Sulfamethoxazole/Trimethoprim Ds 800/160mg Tab) 1 tab PO NOW ONE Stop: 06/22/20 13:40 Last Admin: 06/22/20 13:49 Dose: Not Given Documented by: [id number] Discharge Plan Visit Data Chief Complaint: Urinary Symptoms Stated Complaint: POSSIBLE UTI,RIGHT SIDED PAIN,NAUSEA,CHILLS ED Provider: Fercho Da Silva ED Midlevel Provider: Grace Rosas Discharge Problem: Pyelonephritis of right kidney, Hydroureteronephrosis, Acute right flank pain Patient Disposition: Admitted As Inpatient Condition: Good Discharge Instructions Interventions: ED Discharge Assessment Last Done: 06/22/20 15:47
[2020-06-22 09:03] LABS: Appearance Urine Cloudy (Clear); Bacteria Urine Automated 4+ (Negative); Bilirubin Urine Negative (Negative); Blood Urine 3+ (Negative); Color Urine Yellow; Glucose Urine UA Negative (Negative); Ketones Urine Negative (Negative); Leukocyte Esterase Urine 3+ (Negative); Nitrite Urine Positive (Negative); RBC Urine Automated >30 /hpf (0-4); Specific Gravity Urine 1.015 (1.000-1.030); Urobilinogen Urine Negative (Negative); WBC Urine Automated >30 /hpf (0-5); pH Urine 7.5 (4.5-7.5)
[2020-06-22 09:09] LABS: Basophils # (auto) 0.01 K/uL (0-0.2); Basophils % (auto) 0.1 %; Eosinophils # (auto) 0.02 K/uL (0-0.5); Eosinophils % (auto) 0.2 %; Hematocrit (blood only) 37.4 % (37-47); Hemoglobin 12.9 g/dL (12.0-16.0); Immature Granulocytes # (auto) 0.02 K/uL (0.00-0.02); Immature Granulocytes % (auto) 0.2 %; Lymphocytes # (auto) 0.68 K/uL (1.2-3.4); Lymphocytes % (auto) 7.4 %; Mean Corpuscular Hemoglobin 31.4 pg (25-34); Mean Corpuscular Hgb Conc 34.5 g/dL (32-36); Mean Platelet Volume 9.4 fL (7.4-10.4); Monocytes % (auto) 6.5 %; Neutrophils # (auto) 7.88 K/uL (1.4-6.5); Neutrophils % (auto) 85.6 %; Platelet Count 184 K/uL (130-400); RDW Coefficient of Variation 12.7 % (11.5-14.5); RDW Standard Deviation 42.4 fL (36.4-46.3); Red Blood Count 4.11 M/uL (4.2-5.4); White Blood Count 9.21 K/uL (4.8-10.8)
[2020-06-22 09:25] LABS: Albumin Level 3.9 gm/dl (3.4-5.0); BUN Creatinine Ratio 26.2 (10-20); Calcium 9.3 mg/dl (8.5-10.1); Est GFR (African American) 112.1; Est GFR (Non-African American) 96.8; Potassium 3.7 mmol/L (3.5-5.1)
[2020-06-22 09:25] LABS: Protein Urine 2+ (Negative); Sulfosalicylic Acid Urine Positive (Negative)
[2020-06-22 09:28] LABS: Bilirubin,Total 0.4 mg/dl (0.2-1); Globulin 3.9 gm/dl (2.5-4.0); Total Protein 7.8 gm/dl (6.4-8.2)
[2020-06-22] MEDS ORDERED: cefTRIAXone SODIUM 2,000 MG/70 ML BAG IV STA (09:55)
--- NOTE | 2020-06-22 10:34 | Ultrasound Report ---
RENAL ULTRASOUND CLINICAL HISTORY: Right flank pain. COMPARISON STUDY: MRI of the abdomen and pelvis May 13, 2017. Renal ultrasound March 10, 2020. TECHNIQUE: Sonography of the kidneys and the urinary bladder was performed. FINDINGS: Right kidney measures 12.8 cm maximal dimension and the left measures 11.2 cm. There is no left hydronephrosis. There has been interval development of moderate right hydroureteronephrosis sinc e ultrasound of March 10, 2020. Etiology for this dilatation is not clear on this examination. No yvan l calculi or masses are identified. Right ureteral jet was not visualized. Left ureteral jet was iden tified. IMPRESSION: 1. Development of moderate right hydroureteronephrosis since ultrasound of March 10, 2020. Etiology fo r dilatation not clear on this exam. 2. No left hydronephrosis. ACT 112: Positive. There are findings on this exam that require communication between the performing entity and the patient following Patient Test Result Information Act ([place] Act 112) guidelines. Electronically signed by: Dominic William M.D. 06/22/2020 10:32 AM
[2020-06-22] MEDS ORDERED: IOVERSOL 100ml IV ONE (12:37)
--- NOTE | 2020-06-22 12:54 | CT Scan Report ---
ABDOMEN AND PELVIS CT WITH IV CONTRAST CT DOSE: 352.79 mGycm HISTORY: Acute right-sided flank pain with right-sided hydronephrosis right flank pain, hydronephros is TECHNIQUE: Multiaxial CT images of the abdomen and pelvis were performed following the IV administrat ion of 93 cc of Optiray 320, A dose lowering technique was utilized adhering to the principles of [place] BERNIE. COMPARISON STUDY: Renal ultrasound of same day and also 03/10/2020, CT abdomen and pelvis 05/01/2017 FINDINGS: Clear lung bases. There is no pneumatosis or pneumoperitoneum. The imaged inferior cardiac chambers are unremarkable. The spleen, pancreas and adrenal glands are unremarkable. Mild gallbladder distention. Unchanged 6 mm right hepatic lobe hypodensity suggestive of a probable cyst. Additional probable cyst of the left hepatic lobe, 6 mm. There is patency of the hepatic and portal veins. No bi liary ductal dilation. Normal left kidney. There is moderate to severe right-sided hydroureteronephro sis with subtle ill-defined decreased enhancement of the superior pole right kidney. Urothelial thick ening and enhancement of the right ureter with periureteral. There is dilation of the right ureter to the level of the reimplanted ureterovesicular junction. No obstructing calculus or lesion identified . Delayed right-sided nephrogram. Circumferential urinary bladder wall thickening with mucosal hypere liam and perivesicular stranding. Abnormal orientation of the urinary bladder within the right hemipel vis is new from prior and also likely postoperative. Hysterectomy. No adnexal mass lesions identified . There is no abdominal aortic aneurysm. No adenopathy. Surgical clips are noted within the right ing uinal tissues. There is no bowel obstruction or bowel wall thickening. Postoperative changes of partial sigmoid colo n resection with colocolonic anastomosis. The appendix is reportedly surgically absent. Scattered sma ll bowel air-fluid levels are likely physiologic. Tiny fat filled periumbilical hernia. Lungs appear intact. IMPRESSION: 1. Moderate to severe right-sided hydroureteronephrosis and delayed nephrogram with dilation of the r ight ureter extending to the level of the reimplanted ureterovesicular junction. No obstructing calcu regis identified. These findings may be secondary to a distal ureteral stricture or urothelial lesion. 2. Urothelial thickening and enhancement of the right ureter may be reactive or represent superimpose d infectious ureteritis. 3. Urinary bladder wall thickening with perivesicular stranding may represent cystitis. Correlate wit h urinalysis. 4. No bowel obstruction or bowel wall thickening. 5. Additional findings as above. ACT 112: Negative or not required by law. The above report was generated using voice recognition software. It may contain grammatical, syntax o r spelling errors. Electronically signed by: Corby Palumbo M.D. 06/22/2020 12:52 PM
[2020-06-22] MEDS ORDERED: SULFAMETHOXAZOLE/TRIMETHOPRIM DS 800/160MG TAB PO ONE (13:39)
[2020-06-22] MEDS ORDERED: ACETAMINOPHEN 500 MG TAB PO STA (13:42)
--- NOTE | 2020-06-22 14:54 | History & Physical Report ---
Date of Service June 22, 2020 Assessment & Plan (1) Pyelonephritis of right kidney: Cetirizine 2 g IV daily Follow-up urine and blood cultures Lactate pending IV fluids (2) Hydroureteronephrosis: In setting of prior right ureteral resection/reimplantation. CT performed with IV contrast although no IV within the ureter therefore obstructing calculus ruled out. Consult urology for ongoing management (3) Acute right flank pain: Acetaminophen +/-Toradol as needed for pain (4) Mast cell activation syndrome: Continue cetirizine 10 mg p.o. daily, famotidine 40 mg p.o. twice daily (5) DVT prophylaxis: Treatment not indicated due to low risk Admission and Anticipated Discharge Date Admission Date: 06/22/2020 History of Present Illness Chief Complaint: Right-sided flank pain, fever Primary Care Provider: Tayler William MD Desire Nicolas is a 44 year old female with complex past medical history due to severe endometriosis requiring multiple surgeries including hysterectomy, sigmoid bowel resection and right ureteral resection/reimplantation who present to the ER with right flank pain and dysuria. No radiation. Her symptoms started 3 days ago, initially with just burning sensation on urination, progressively getting worse since then. No fevers or chills up until occurring in the ER. No given vomiting. No change in bowels. No history of UTIs or known Pseudomonas infections. 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 She reports no acute skin swelling or hives. In the ER CT abdomen/pelvis with contrast concerning for moderate to severe right-sided hydroureteronephrosis without obstructing calculus. With right- sided flank pain she was diagnosed with acute pyelonephritis and started on IV 2g ceftriaxone. While in the ER she spiked a temperature of 39.4 C with associated tachycardia that time. Case was discussed with urology by the ER provider - no emergent intervention was recommended. She was referred to medicine for admission. Allergies Allergy/AdvReac Type Severity Reaction Status Date / Time furosemide AdvReac Intermediate Palpatation Verified 06/22/20 08:24 s Home Medications Home Medications Medication Instructions Recorded Confirmed Type multivitamin 1 tab PO DAILY 02/24/20 06/22/20 History cholecalciferol (vitamin D3) 125 mcg PO DAILY 03/11/20 06/22/20 History [Vitamin D3] vitamin K2 40 mcg PO DAILY 03/11/20 06/22/20 History cetirizine 10 mg capsule 10 mg PO DAILY 04/27/20 06/22/20 History famotidine 40 mg tablet 40 mg PO BID #60 tab 04/27/20 06/22/20 Rx epinephrine 0.3 mg/0.3 mL 0.3 mg IM Q10M PRN #2 ea 05/05/20 06/22/20 Rx injection, auto-injector calcium carbonate-vitamin D3 1 tab PO DAILY 06/22/20 06/22/20 History [Calcium + D] Past Med/Surg History Medical History (Updated 06/22/20 @ 15:04 by Godwin Maya MD) Endometriosis Osteopenia Premature surgical menopause Surgical History H/O bilateral salpingo-oophorectomy H/O total hysterectomy Hx of appendectomy S/P endometrial ablation S/P laparoscopic-assisted sigmoidectomy S/P lumpectomy, left breast S/P ureteral reimplantation Family History Grandmother Breast cancer Grandfather Myocardial infarction Father Prostate cancer Heart disease Alcohol abuse Mother Alcohol abuse Anxiety Depression Brother Depression Aunt Pancreatic cancer Denies family history of Ovarian cancer Colorectal cancer Social History Smoking Status: Never smoker Second Hand Exposure: No; Hx Alcohol Use: Yes Alcohol type: wine Hx Substance Use: No Preferred Language: Greek Visual Impairment: No Limitations Hearing Ability: Normal marital status: single Current Living Situation: Significant Other current occupational status: employed 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 Feels Safe at Home: Yes Dental Care, Regularly: No Physical Activity Frequency: 1-2 Times per Week Review of Systems Review of Systems: All systems reviewed & are unremarkable except as noted in HPI & below Musculoskeletal: + problem reported (Chronic morning joint stiffness) Physical Exam Constitutional: well developed and well nourished; no acute distress Eyes: + anicteric sclerae; normal pupil size ENMT: external ear and nose normal, oropharynx normal Neck: trachea midline, no thyromegaly Respiratory: normal respiratory effort, lungs clear to auscultation Cardiovascular: Rate/Rhythm: regular rhythm and + tachycardic Heart Sounds: no murmur Vessels: no JVD Extremities: normal capillary refill; no calf tenderness and no pedal edema Gastrointestinal (Abdomen): normal bowel sounds, soft, nontender, no hepatosplenomegaly Musculoskeletal: no cyanosis or clubbing, extremities motor strength 5/5 Skin: no rashes, warm and dry Neurologic: moves all extremities and awake; not confused Psychiatric: A+Ox3, euthymic affect Genitourinary: + CVA tenderness (Right-sided) Results & Data Results & Data ([facility]) Vital Signs (Past 12 Hours) Vital Signs Temp Pulse Pulse Resp BP BP Pulse Ox 06/22/20 13:41 39.4 C H 118 H 20 103/55 L 98 06/22/20 12:20 78 20 106/72 98 06/22/20 10:38 94 H 20 108/67 98 06/22/20 09:11 98 06/22/20 09:10 92 H 20 110/73 98 06/22/20 08:07 37.0 C 118 H 20 108/65 98 Diagnostic Findings RENAL ULTRASOUND IMPRESSION: 1. Development of moderate right hydroureteronephrosis since ultrasound of March 10, 2020. Etiology for dilatation not clear on this exam. 2. No left hydronephrosis. ABDOMEN AND PELVIS CT WITH IV CONTRAST IMPRESSION: 1. Moderate to severe right-sided hydroureteronephrosis and delayed nephrogram with dilation of the right ureter extending to the level of the reimplanted ureterovesicular junction. No obstructing calculus identified. These findings may be secondary to a distal ureteral stricture or urothelial lesion. 2. Urothelial thickening and enhancement of the right ureter may be reactive or represent superimposed infectious ureteritis. 3. Urinary bladder wall thickening with perivesicular stranding may represent cystitis. Correlate with urinalysis. 4. No bowel obstruction or bowel wall thickening. 5. Additional findings as above. Code Status & VTE Plan Code Status Full VTE Prophylaxis Plan VTE Prophylaxis will be ordered: No Reason for no VTE drug order: Treatment not indicated Reason for no VTE mechanical prophylaxis: Treatment not indicated PG Care Time/CCT Total # of Minutes Spent Total Time Spent with Patient: Total time spent is greater than 50% in coordination of care (as documented) at patient's floor/unit and/or counseling patient: Coding Level of Care Code 82886 Initial Inpt Care Lvl 3 Diagnoses Pyelonephritis of right kidney N12 Hydroureteronephrosis N13.30 Acute right flank pain R10.9 Mast cell activation syndrome D89.40 DVT prophylaxis Z29.9
[2020-06-22] MEDS ORDERED: ONDANSETRON INJ 2 MG/ML 2 ML VIAL IV PRN (16:04)
[2020-06-22] MEDS ORDERED: KETOROLAC TROMETHAMINE 15 MG/ML VIAL IV PRN (16:04)
[2020-06-22] MEDS ORDERED: POLYETHYLENE (MIRALAX) 17 GM PACK PO PRN (16:04)
[2020-06-22] MEDS ORDERED: INFLUENZA VIRUS QUAD VACCINE 0.5 ML SYR IM ONE (16:14)
[2020-06-22] MEDS ORDERED: INFLUENZA ADMINISTRATION CHARGE ONE (16:14)
[2020-06-22] MEDS: NSS + 20MEQ KCL 20 MEQ/1,000 ML BAG IV SCH ×2 (16:36→23:12)
[2020-06-22] MEDS: ACETAMINOPHEN 325 MG TAB PO PRN ×2 (18:20→22:19)
[2020-06-22] MEDS: FAMOTIDINE 40 MG TABLET PO SCH (21:14)
[2020-06-23] MEDS: ACETAMINOPHEN 325 MG TAB PO PRN ×3 (03:14→14:04)
[2020-06-23] MEDS: NSS + 20MEQ KCL 20 MEQ/1,000 ML BAG IV SCH ×2 (05:39→14:09)
--- NOTE | 2020-06-23 07:55 | Urology Consultation ---
Date of Consultation June 23, 2020 Assessment & Plan (1) Hydroureteronephrosis: 44yo F -Keep NPO -Findings reviewed with Dr. Holder. Given her moderate to severe right-sided hydroureteronephrosis and delayed nephrogram with dilation of the right ureter will proceed with OR for Cystoscopy, Right retrograde pyelogram, Right stent placement, possible Ureteroscopy, and possible ureteral dilation depending on findings. Risks and benefits to be reviewed with patient by Dr. Holder. OR n otified. Preoperative CXR ordered. EKG in chart. On IV Ceftriaxone. -Patient agreeable to above plan. All questions were answered. Supervising Physician Co-Signing Physician Notes agree with above plan to move forward with right ureteral stent placement now History of Present Illness Attending Physician: Marlene Ramirez MD History of Present Illness Prior ureteral reimplant, now with a delayed nephrogram, hydronephrosis and fevers overnight Allergies Allergy/AdvReac Type Severity Reaction Status Date / Time furosemide AdvReac Intermediate Palpatation Verified 06/22/20 08:24 s Home Medications Home Medications Medication Instructions Recorded Confirmed Type multivitamin 1 tab PO DAILY 02/24/20 06/22/20 History cholecalciferol (vitamin D3) 125 mcg PO DAILY 03/11/20 06/22/20 History [Vitamin D3] vitamin K2 40 mcg PO DAILY 03/11/20 06/22/20 History cetirizine 10 mg capsule 10 mg PO DAILY 04/27/20 06/22/20 History famotidine 40 mg tablet 40 mg PO BID #60 tab 04/27/20 06/22/20 Rx epinephrine 0.3 mg/0.3 mL 0.3 mg IM Q10M PRN #2 ea 05/05/20 06/22/20 Rx injection, auto-injector calcium carbonate-vitamin D3 1 tab PO DAILY 06/22/20 06/22/20 History [Calcium + D] Patient History Medical History Endometriosis Osteopenia Premature surgical menopause Surgical History H/O bilateral salpingo-oophorectomy H/O total hysterectomy Hx of appendectomy S/P endometrial ablation S/P laparoscopic-assisted sigmoidectomy S/P lumpectomy, left breast S/P ureteral reimplantation Family History Grandmother Breast cancer Grandfather Myocardial infarction Father Prostate cancer Heart disease Alcohol abuse Mother Alcohol abuse Anxiety Depression Brother Depression Aunt Pancreatic cancer Denies family history of Ovarian cancer Colorectal cancer Social History Smoking Status: Never smoker Second Hand Exposure: Yes (childhood); Do You Dip or Chew Tobacco: No; Hx Alcohol Use: No Hx Substance Use: No Preferred Language: Slovenian Communication Ability: Effective Visual Impairment: No Limitations Hearing Ability: Normal Employment Legal Assistant Required: No Beliefs That Will Affect Care: None marital status: single Current Living Situation: Significant Other current occupational status: employed current occupation: self employed- [employer] Other Information That Helps Us Care for You: No Feels Safe at Home: Yes Safety Concerns: Feels Safe At This Time Dental Care, Regularly: No Physical Activity Frequency: 1-2 Times per Week Assistive Devices: None Assistive Devices Comment: Did not bring Review of Systems Review of Systems: All systems reviewed & are unremarkable except as noted in HPI & below Physical Exam Constitutional: well developed and well nourished Neck: neck nontender Respiratory: normal respiratory effort; no respiratory distress and does not use accessory muscles Cardiovascular: Rate/Rhythm: regular rate Vessels: radial pulses present Extremities: no edema Gastrointestinal (Abdomen): Inspection/Auscultation: abdomen normal to inspection Percussion/Palpation: abdomen soft; abdomen nontender and no guarding Musculoskeletal: Head/Neck/Chest: normocephalic and head atraumatic Extremities: extremities normal to inspection Skin: no rashes and no lesions Trauma: no evidence of skin trauma Neurologic: awake; not obtunded Speech / Cognition: normal speech Motor/Sensory: no tremor Psychiatric: Orientation: alert and oriented x 3 Lymphatic: no lymphadenopathy Results & Data ([facility]) Vital Signs (Past 12 Hours) Vital Signs Temp Pulse Resp BP Pulse Ox 06/23/20 07:05 37.6 C H 82 16 83/53 L 95 06/23/20 05:38 38.0 C H 06/23/20 05:00 38.2 C H 06/23/20 03:14 39.3 C H 06/23/20 00:55 38.0 C H 06/22/20 23:47 39.3 C H 99 H 18 98/52 L 95 PG Care Time/CCT Total # of Minutes Spent Total Time Spent with Patient: Total time spent is greater than 50% in coordination of care (as documented) at patient's floor/unit and/or counseling patient: Coding Level of Care Code 24470 Inpt Consult Level 3 Diagnoses Hydroureteronephrosis N13.30
--- NOTE | 2020-06-23 08:40 | Hospitalist Progress Note ---
Date of Service June 23, 2020 Assessment & Plan (1) Sepsis: tachycardia, fever 2' to UTI lactate < 2 (2) Pyelonephritis of right kidney: rocephin 2 g IV daily urine cx with 100,000 gram negative bacilli susceptibilities pending (3) Hydroureteronephrosis: In setting of prior right ureteral resection/reimplantation. Dr. Holder of urology took to OR for cystoscopy, right retrograde pyelogram and stent placement pre-OR COVID test negative (4) Acute right flank pain: Acetaminophen and Toradol as needed for pain (5) Mast cell activation syndrome: Continue cetirizine 10 mg p.o. daily, famotidine 40 mg p.o. twice daily (6) DVT prophylaxis: no lovenox due to surgery NPO for OR full code Admission and Anticipated Discharge Date Admission Date: June 22, 2020 Subjective Right flank pain and dysuria 3 days duration. Fever 102.9 and tachycardia 118 in ER last night. Vomiting x 1 episode, nonbloody, last night. Since then chavo has been helping with her nausea. Denies chest pain, sob, headache. Going to OR this afternoon for cystoscopy and ureteral stent. Review of Systems Constitutional: + fever and + anorexia; no chills, no fatigue, no weakness, no weight loss and no weight gain Ear, Nose, Mouth, Throat: no nasal congestion, no sore throat and no dysphagia Respiratory: no cough and no dyspnea Cardiovascular: no chest pain, no dyspnea on exertion, no orthopnea and no palpitations Gastrointestinal: + nausea and + vomiting; no abdominal pain, no hematemesis, no dysphagia, no constipation, no diarrhea/loose stools, no blood in stools and no melena Genitourinary: no dysuria, no urinary frequency, no hematuria and no flank pain Musculoskeletal: no back pain, no joint pain, no myalgia and no muscle weakness Integumentary: no rash, no lesions, no skin ulcer, no erythema, no dry skin and no pruritus Neurologic: no falls, no localized weakness, no generalized weakness, no numbness, no paresthesia, no tremor(s) and no headache(s) Psychiatric: no depression, no suicidal ideation, no homicidal ideation and no anxiety Endocrine: no cold intolerance and no heat intolerance Hematologic / Lymphatic: no easy bleeding and no easy bruising Physical Exam Constitutional: well developed and well nourished; no acute distress Eyes: PERRL, conjunctivae normal, anicteric sclerae ENMT: Mouth: oral mucous membranes not dry Respiratory: normal respiratory effort; no respiratory distress and no labored breathing Auscultation: lungs clear to auscultation bilaterally; no crackles, no rales, no rhonchi and no wheezes Cardiovascular: Rate/Rhythm: regular rate and regular rhythm Heart Sounds: no murmur and no cardiac rub Vessels: normal peripheral pulses and radial pulses present; no JVD Extremities: no edema Gastrointestinal (Abdomen): Inspection/Auscultation: abdomen normal to inspection and normal bowel sounds; abdomen not distended Percussion/Palpation: + abdomen tender and abdomen soft; no guarding, abdomen not rigid and no hepatosplenomegaly Musculoskeletal: Head/Neck/Chest: normocephalic and head atraumatic Spine: no cervical spinal tenderness, no cervical muscular tenderness, no thoracic spinal tenderness and no lumbar spinal tenderness Skin: no rashes, warm and dry Neurologic: CN's II-XI intact bilaterally and moves all extremities Motor/Sensory: no tremor and no sensory deficit Psychiatric: Orientation: alert, oriented to person, oriented to place and oriented to time Apperance: appropriately groomed; not disheveled Affect: euthymic affect; no anxious affect and no tearful affect Genitourinary: no CVA tenderness no Vazquez catheter Results & Data Results & Data ([facility]) Vital Signs (Past 12 Hours) Vital Signs Temp Pulse Resp BP Pulse Ox 06/23/20 07:57 93/55 L 06/23/20 07:05 37.6 C H 82 16 83/53 L 95 06/23/20 05:38 38.0 C H 06/23/20 05:00 38.2 C H 06/23/20 03:14 39.3 C H 06/23/20 00:55 38.0 C H 06/22/20 23:47 39.3 C H 99 H 18 98/52 L 95 Laboratory Results Abnormal lab results 06/22/20 06/22/20 06/22/20 Range/Units 08:20 09:00 09:00 RBC 4.11 L (4.2-5.4) M/uL Neut # (Auto) 7.88 H (1.4-6.5) K/uL Lymph # (Auto) 0.68 L (1.2-3.4) K/uL Ransom # (Auto) 0.60 H (0.11-0.59) K/uL BUN 20 H (7-18) mg/dl BUN/Creatinine Ratio 26.2 H (10-20) Glucose 103 H (70-99) mg/dl AST 14 L (15-37) U/L Urine Appearance Cloudy A (Clear) Urine Protein 2+ H (Negative) Urine Blood 3+ H (Negative) Urine Nitrite Positive A (Negative) Ur Leukocyte Esterase 3+ H (Negative) Urine WBC (Auto) >30 H (0-5) /hpf Urine RBC (Auto) >30 H (0-4) /hpf U Epithel Cells (Auto) 10-20 H (0-5) /lpf Urine Bacteria (Auto) 4+ H (Negative) Diagnostic Findings urine culture > 100,000 CFU gram negative bacilli Medications Administered Current Inpatient Medications Acetaminophen (Acetaminophen 325 Mg Tab) 650 mg PO Q4H PRN PRN Reason: pain/fever Stop: 07/22/20 16:03 Last Admin: 06/23/20 03:14 Dose: 650 mg Documented by: Cetirizine HCl (Cetirizine Hcl 10 Mg Tablet) 10 mg PO DAILY MAN[place]OR Stop: 07/23/20 08:59 Famotidine (Famotidine 40 Mg Tablet) 40 mg PO BID [facility]OR Stop: 07/22/20 20:59 Last Admin: 06/22/20 21:14 Dose: 40 mg Documented by: Ceftriaxone Sodium 2,000 mg/ (Dextrose) 70 mls @ 100 mls/hr IV Q24H MANSOOR; Protocol Stop: 07/02/20 09:59 Potassium Chloride/Sodium Chloride (Normal Saline W/20 Meq Kcl) 20 meq in 1,000 mls @ 150 mls/hr IV .Q6H40M MAN[place]OR Stop: 07/22/20 16:29 Last Infusion: 06/23/20 06:20 Dose: 150 mls/hr Documented by: Ketorolac Tromethamine (Ketorolac Tromethamine 15 Mg/Ml Vial) 15 mg IV Q6H PRN PRN Reason: Pain Stop: 06/27/20 16:03 Last Admin: 06/23/20 05:40 Dose: 15 mg Documented by: Multivitamins (Multivitamin Tab) 1 tab PO DAILY [place]OR Stop: 07/23/20 08:59 Ondansetron HCl (Ondansetron Inj 2 Mg/Ml 2 Ml Vial) 4 mg IV Q6H PRN PRN Reason: Nausea Stop: 07/22/20 16:03 Last Admin: 06/22/20 22:19 Dose: 4 mg Documented by: Polyethylene Glycol (Polyethylene (Miralax) 17 Gm Pack) 17 gm PO DAILY PRN PRN Reason: Constipation Stop: 07/22/20 16:03 Results / Data Diagnostics CT: IMPRESSION: 1. Moderate to severe right-sided hydroureteronephrosis and delayed nephrogram with dilation of the right ureter extending to the level of the reimplanted ureterovesicular junction. No obstructing calculus identified. These findings may be secondary to a distal ureteral stricture or urothelial lesion. 2. Urothelial thickening and enhancement of the right ureter may be reactive or represent superimposed infectious ureteritis. 3. Urinary bladder wall thickening with perivesicular stranding may represent cystitis. Correlate with urinalysis. 4. No bowel obstruction or bowel wall thickening. 5. Additional findings as above. Radiology: renal US IMPRESSION: 1. Development of moderate right hydroureteronephrosis since ultrasound of March 10, 2020. Etiology for dilatation not clear on this exam. 2. No left hydronephrosis. PG Care Time/CCT Total # of Minutes Spent Total Time Spent with Patient: Total time spent is greater than 50% in coordination of care (as documented) at patient's floor/unit and/or counseling patient: Coding Level of Care Code 31634 Subseq Hosp Care Lvl 3 Diagnoses Sepsis A41.9 Sepsis acute organ dysfunction status: without acute organ dysfunction Sepsis type: sepsis due to unspecified organism Pyelonephritis of right kidney N12 Hydroureteronephrosis N13.30 Acute right flank pain R10.9 Mast cell activation syndrome D89.40 DVT prophylaxis Z29.9 (1) Sepsis Sepsis acute organ dysfunction status: without acute organ dysfunction Sepsis type: sepsis due to unspecified organism Qualified Code(s): A41.9 - Sepsis, unspecified organism
[2020-06-23] MEDS: FAMOTIDINE 40 MG TABLET PO SCH ×2 (08:41→21:39)
[2020-06-23] MEDS: MULTIVITAMIN TAB PO SCH (08:41)
[2020-06-23] MEDS: CETIRIZINE HCL 10 MG TABLET PO SCH (08:41)
[2020-06-23] MEDS ORDERED: NON-FORMULARY MEDICATION (Vitamin K2 40 mcg Tablet) PO SCH (09:00)
[2020-06-23] MEDS: cefTRIAXone SODIUM 2,000 MG in DEXTROSE 5% 50 ML IV SCH (09:12)
[2020-06-23] MEDS ORDERED: PROPOFOL IV EMULSION 10 MG/ML 20 ML VIAL IV ONE (12:12)
[2020-06-23] MEDS ORDERED: LIDOCAINE HCL 2% 2 ML VIAL/AMP(20MG/ML) INFIL ONE (12:12)
[2020-06-23] MEDS ORDERED: MIDAZOLAM HCL 1 MG/ML 2ML VIAL ONE ×2 (12:12→12:53)
[2020-06-23] MEDS ORDERED: HYDROCODONE/ACETAMOPHEN 5/325MG TAB PO PRN ×2 (12:13)
[2020-06-23] MEDS ORDERED: ACETAMINOPHEN 325 MG TAB PO PRN (12:13)
[2020-06-23] MEDS ORDERED: fentaNYL citrate 100 MCG/2 ML VIAL ONE (12:13)
[2020-06-23] MEDS ORDERED: SODIUM CHLORIDE 0.9% 1000ML 1,000 ML IV SCH (12:15)
[2020-06-23] MEDS ORDERED: ONDANSETRON INJ 2 MG/ML 2 ML VIAL ONE (12:17)
--- NOTE | 2020-06-23 12:36 | Anesthesiology Consultation ---
Date of Service June 23, 2020 Covid 19 negative today. Assessment & Plan (1) Encounter for pre-operative examination: Chart Review Chart Review: Acceptable Risk for Surgery and Patient NOT seen in Pre Admission Testing Consults Requested none History Surgery Operation Date: 06/23/20 12:35 Proposed Procedures p Cystoscopy, Right Retrograde Pyelogram, Right Stent Insertion, Possible Ureteroscopy, Ureteral Dilation - Anup Holder MD Height/Weight Height: 5 ft 9 in Weight: 62.233 kg Allergies Allergy/AdvReac Type Severity Reaction Status Date / Time furosemide AdvReac Intermediate Palpatation Verified 06/22/20 08:24 s Medications Home Medications Medication Instructions Recorded Confirmed Last Taken multivitamin 1 tab PO DAILY 02/24/20 06/22/20 03/10/20 cholecalciferol (vitamin D3) 125 mcg PO DAILY 03/11/20 06/22/20 03/10/20 [Vitamin D3] vitamin K2 40 mcg PO DAILY 03/11/20 06/22/20 03/10/20 cetirizine 10 mg capsule 10 mg PO DAILY 04/27/20 06/22/20 Unknown famotidine 40 mg tablet 40 mg PO BID #60 tab 04/27/20 06/22/20 Unknown epinephrine 0.3 mg/0.3 mL 0.3 mg IM Q10M PRN #2 ea 05/05/20 06/22/20 Unknown injection, auto-injector calcium carbonate-vitamin D3 1 tab PO DAILY 06/22/20 06/22/20 Unknown [Calcium + D] Active Medications Generic Name Dose Route Start Last Admin Trade Name Freq PRN Reason Stop Dose Admin Acetaminophen 650 mg 06/22/20 16:04 06/23/20 09:11 Acetaminophen 325 Mg Tab PO 07/22/20 16:03 650 mg Q4H PRN Administration pain/fever Cetirizine HCl 10 mg 06/23/20 09:00 06/23/20 08:41 Cetirizine Hcl 10 Mg Tablet PO 07/23/20 08:59 10 mg DAILY MANSOOR Administration Famotidine 40 mg 06/22/20 21:00 06/23/20 08:41 Famotidine 40 Mg Tablet PO 07/22/20 20:59 40 mg BID MAN[place]OR Administration Ceftriaxone Sodium 2,000 mg/ 70 mls @ 100 mls/hr 06/23/20 10:00 06/23/20 09:54 Dextrose IV 07/02/20 09:59 Infused Q24H MANSOOR Infusion Protocol Potassium Chloride/Sodium Chloride 20 meq in 1,000 mls @ 150 mls/hr 06/22/20 16:30 06/23/20 06:20 Normal Saline W/20 Meq Kcl IV 07/22/20 16:29 150 mls/hr .Q6H40M MANSOOR Infusion Ketorolac Tromethamine 15 mg 06/22/20 16:04 06/23/20 05:40 Ketorolac Tromethamine 15 Mg/Ml Vial IV 06/27/20 16:03 15 mg Q6H PRN Administration Pain Multivitamins 1 tab 06/23/20 09:00 06/23/20 08:41 Multivitamin Tab PO 07/23/20 08:59 1 tab DAILY [facility]OR Administration Ondansetron HCl 4 mg 06/22/20 16:04 06/22/20 22:19 Ondansetron Inj 2 Mg/Ml 2 Ml Vial IV 07/22/20 16:03 4 mg Q6H PRN Administration Nausea NPO Date Last Intake of Fluids: 06/22/20 Time Last Intake of Fluids: 23:00 Date Last Intake of Solids: 06/22/20 Time Last Intake of Solids: 19:00 Past Medical History Medical History (Updated 06/23/20 @ 12:36 by Mina Guillermo MD) Endometriosis Osteopenia Premature surgical menopause Past Family History Family History Grandmother Breast cancer Grandfather Myocardial infarction Father Prostate cancer Heart disease Alcohol abuse Mother Alcohol abuse Anxiety Depression Brother Depression Aunt Pancreatic cancer Denies family history of Ovarian cancer Colorectal cancer Past Surgical History Surgical History H/O bilateral salpingo-oophorectomy H/O total hysterectomy Hx of appendectomy S/P endometrial ablation S/P laparoscopic-assisted sigmoidectomy S/P lumpectomy, left breast S/P ureteral reimplantation Social History Smoking Status: Never smoker Do You Dip or Chew Tobacco: No Hx Alcohol Use: No Alcohol type: wine Hx Substance Use: No substance use type: does not use Physical Exam Vital Signs Last Vital Signs Temp 36.9 C 06/23/20 11:59 Pulse 81 06/23/20 11:59 Resp 18 06/23/20 11:59 BP 106/65 06/23/20 11:59 Pulse Ox 100 06/23/20 11:59 Testing Laboratory Results 06/22/20 09:00 06/22/20 09:00 Urine Color Yellow 06/22/20 08:20 Urine Appearance Cloudy (Clear) A 06/22/20 08:20 Urine pH 7.5 (4.5-7.5) 06/22/20 08:20 Ur Specific [place] 1.015 (1.000-1.030) 06/22/20 08:20 Urine Protein 2+ (Negative) H 06/22/20 08:20 Urine Glucose (UA) Negative (Negative) 06/22/20 08:20 Urine Ketones Negative (Negative) 06/22/20 08:20 Urine Nitrite Positive (Negative) A 06/22/20 08:20 Ur Leukocyte Esterase 3+ (Negative) H 06/22/20 08:20 Urine WBC (Auto) >30 /hpf (0-5) H 06/22/20 08:20 Urine RBC (Auto) >30 /hpf (0-4) H 06/22/20 08:20 U Hyaline Cast (Auto) 1-5 /lpf (0-5) 06/22/20 08:20 U Epithel Cells (Auto) 10-20 /lpf (0-5) H 06/22/20 08:20 Urine Bacteria (Auto) 4+ (Negative) H 06/22/20 08:20 06/22/20 08:20 Urine Culture - Preliminary Urine,Clean Catch Gram negative bacilli
[2020-06-23] MEDS ORDERED: ONDANSETRON INJ 2 MG/ML 2 ML VIAL IV PRN (12:38)
[2020-06-23] MEDS ORDERED: LABETALOL HCL IV 5 MG/ML 20ML IV PRN (12:38)
[2020-06-23] MEDS ORDERED: ATROPINE SULFATE 0.1 MG/ML 10ML SYR IV PRN (12:38)
[2020-06-23] MEDS ORDERED: ePHEDrine sulfate 50 MG/ML AMP IV PRN (12:38)
[2020-06-23] MEDS ORDERED: MEPERIDINE HCL 25 MG/ML CARP/VIAL IV PRN (12:38)
[2020-06-23] MEDS ORDERED: fentaNYL citrate 100 MCG/2 ML VIAL IV PRN (12:38)
[2020-06-23] MEDS ORDERED: PHENYLEPHRINE 100MCG/ML 5ML SYR IV PRN (12:38)
[2020-06-23] MEDS ORDERED: DEXAMETHASONE SOD INJ 4 MG/ML VIAL ONE (12:41)
--- NOTE | 2020-06-23 13:08 | Operative Report ---
PG Post Operative Report Pre & Post Diagnosis Operation Date: 06/23/20 12:35 Pre-Op Diagnosis: Acute Pyelonephritis with Hydroureteronephrosis Post-Op Diagnosis: Acute Pyelonephritis with Hydroureteronephrosis I identified the patient and participated in the time-out.: Yes Procedure Operation Date: 06/23/20 12:35 Actual Procedures p Cystoscopy, Right Retrograde Pyelogram, Right Ureteral Stent Placement(Right) - nAup Holder MD Surgeon Noman Holder MD Sewing Machine Operator none Estimated Blood Loss 0 Findings Consistent with Post-Op Diagnosis Specimens none Description of Procedure The patient was identified in the preoperative holding area, appropriate informed consents were reviewed and completed and the patient was transferred to the operative suite. Upon arrival, appropriate antibiotics and anesthesia were administered and the patient was placed in dorsal lithotomy position and prepped and draped in sterile fashion. Inspection also identified orthotopic ureteral orifices. Of note, however, she had To begin the case to pass a 22 [place] cystoscope with 30 degree lens. Inspection revealed a healthy-appearing bladder with minimal inflammation. Clear urine was present. a distal obstruction of her right ureter and ultimately underwent a reimplant. [place] UO appeared to be healthy, I looked for the reimplanted UO and identified it near the dome of the bladder. I was able to successfully intubate this with a sensor wire and a 5 [place] open-ended catheter. I confirmed While the the positioning of the wire into the kidney with fluoroscopy before placing a 6 [place] by 24 cm double-J ureteral stent seeing a good curl in the kidney as well as the bladder. The case was subsequently concluded and she was taken to the PACU in stable condition. There were no complications. I attest to the content of the Intraoperative Record and any orders documented therein. Any exceptions are noted below.
--- NOTE | 2020-06-23 13:26 | Anesthesiology Progress Note ---
Date of Service June 23, 2020 Anesthesia Post Procedure Vital Signs Vital Signs: Temp Pulse Pulse Pulse Resp BP BP 06/23/20 13:20 94 H 18 120/70 06/23/20 13:10 37.4 C 105 H 18 108/72 06/23/20 11:59 36.9 C 81 18 106/65 06/23/20 11:40 37.3 C 88 18 89/58 L 06/23/20 07:57 93/55 L 06/23/20 07:05 37.6 C H 82 16 83/53 L 06/23/20 05:38 38.0 C H 06/23/20 05:00 38.2 C H 06/23/20 03:14 39.3 C H 06/23/20 00:55 38.0 C H 06/22/20 23:47 39.3 C H 99 H 18 98/52 L 06/22/20 18:20 37.3 C 06/22/20 15:58 36.7 C 98 H 14 91/60 L 06/22/20 15:47 37.4 C 93 H 20 98/52 L 06/22/20 13:41 39.4 C H 118 H 20 103/55 L Pulse Ox 06/23/20 13:20 100 06/23/20 13:10 100 06/23/20 11:59 100 06/23/20 11:40 97 06/23/20 07:57 06/23/20 07:05 95 06/23/20 05:38 06/23/20 05:00 06/23/20 03:14 06/23/20 00:55 06/22/20 23:47 95 06/22/20 18:20 06/22/20 15:58 94 06/22/20 15:47 98 06/22/20 13:41 98 Pain Intensity Flank: Pain Intensity: 2 Head: Pain Intensity: 1 Transfer of Care Handoff Completed per policy Notes Mental Status: alert / awake / arousable Patient Amnestic to Procedure: Yes Nausea / Vomiting: adequately controlled Pain: adequately controlled Airway Patency, RR, SpO2: stable & adequate BP & HR: stable & adequate Hydration State: stable & adequate Anesthetic Complications: no major complications apparent and Pt Satisfied with anesthetic care
--- NOTE | 2020-06-23 13:28 | Fluoroscopy Report ---
INTRAOPERATIVE RADIOGRAPHS CLINICAL HISTORY: Right-sided laser lithotripsy and ureteral stent placement procedure. Fluoroscopy time: 6 seconds. FINDINGS: 2 spot fluoroscopic images of the right abdomen are correlated with abdominal CT dated 05/27. Initial image shows the proximal end of a right ureteral stent coiled over the right renal pe lvis. The second image shows the distal end of the stent projecting over the bladder. No calcificatio ns are seen along the course of the stent. Numerous surgical clips are noted in the right hemipelvis. IMPRESSION: Intraoperative images from a right ureteral stent placement procedure as above. Electronically signed by: Josh Sales M.D. 06/23/2020 1:26 PM
[2020-06-23] MEDS: SODIUM CHLORIDE 0.9% 1000ML 1,000 ML IV SCH (18:36)
[2020-06-24] MEDS: SODIUM CHLORIDE 0.9% 1000ML 1,000 ML IV SCH (05:41)
[2020-06-24 06:47] LABS: Hematocrit (blood only) 31.8 % (37-47); Hemoglobin 10.5 g/dL (12.0-16.0); Mean Corpuscular Hemoglobin 30.7 pg (25-34); Mean Platelet Volume 9.7 fL (7.4-10.4); Platelet Count 161 K/uL (130-400); RDW Coefficient of Variation 13.2 % (11.5-14.5); RDW Standard Deviation 45.4 fL (36.4-46.3); Red Blood Count 3.42 M/uL (4.2-5.4); White Blood Count 7.12 K/uL (4.8-10.8)
[2020-06-24 07:48] LABS: BUN Creatinine Ratio 15.5 (10-20); Calcium 8.4 mg/dl (8.5-10.1); Creatinine Clr Calc Pharmacy 116.1 ml/min; Est GFR (African American) 128.9; Est GFR (Non-African American) 111.2
[2020-06-24] MEDS: CETIRIZINE HCL 10 MG TABLET PO SCH (08:37)
[2020-06-24] MEDS: MULTIVITAMIN TAB PO SCH (08:37)
[2020-06-24] MEDS: FAMOTIDINE 40 MG TABLET PO SCH (08:37)
--- NOTE | 2020-06-24 08:37 | Urology Progress Note ---
Date of Service June 24, 2020 Assessment & Plan (1) Pyelonephritis of right kidney: (2) Hydroureteronephrosis: POD1 s/p Stent for stricture/hydronephrosis. Maintain stent. Plan to go home when doing better and able to tolerate diet and activity. No issue with anesthesia. No severe pain. Tolerating stent well. Likely home today. Plan to follow up in 10-20 days for stent removal. Will discuss options for issues if continues to have obstruction problems. Admission and Anticipated Discharge Date Admission Date: June 22, 2020 Subjective Postop from stent placement for obstruction issues. Patient has been tolerating well. Has noticed some frequency and urgency. Has not had severe pain in the back and flank. Does have occasional burning and irritation. No severe episodes or major changes. No new nausea or vomiting. Had tolerated anesthesia without major problems History of reimplant of ureter. Previously had stents for long period prior to reimplant. Likely stricture. Awaiting final cultures and monitoring with hydration. Review of Systems Review of Systems: All systems reviewed & are unremarkable except as noted in HPI & below Physical Exam Physical Exam: General: Alert in no acute distress. HEENT: Normocephalic Atraumatic. Inspection normal. Cranial Nerves 2-12 Grossly intact. Normal inspection of face. Normal inspection of neck. Psychologic: Normal affect. Respiratory: Nonlabored. No use of accessory muscles. No tachypnea or dyspnea. Cardiovascular: No tachycardia Skin: Regent and Dry. No rashes or visible lesions. Extremities/Lymphatics: No edema Abdomen: Soft Non-distended. No rebound or guarding. Results & Data ([facility]) Vital Signs (Past 12 Hours) Vital Signs Temp Pulse Resp BP Pulse Ox 06/24/20 07:08 37.0 C 63 20 115/70 97 06/24/20 03:24 37.4 C 68 20 110/71 97 06/23/20 23:31 37.5 C 62 16 106/68 97 PG Care Time/CCT Total # of Minutes Spent Total Time Spent with Patient: Total time spent is greater than 50% in seo coordinator rdination of care (as documented) at patient's floor/unit and/or counseling patient: Coding Level of Care Code 21056 Subseq Hosp Care Lvl 3 Diagnoses Pyelonephritis of right kidney N12 Hydroureteronephrosis N13.30
[2020-06-24] MEDS: cefTRIAXone SODIUM 2,000 MG in DEXTROSE 5% 50 ML IV SCH (10:10)
--- NOTE | 2020-06-24 11:42 | Discharge Summary ---
Date of Service date of admission - June 22, 2020 date of discharge - June 24, 2020 Admission HPI Per Admitting Provider Desire Nicolas is a 44 year old female with complex past medical history due to severe endometriosis requiring multiple surgeries including hysterectomy, sigmoid bowel resection and right ureteral resection/reimplantation who present to the ER with right flank pain and dysuria. No radiation. Her symptoms started 3 days ago, initially with just burning sensation on urination, progressively getting worse since then. No fevers or chills up until occurring in the ER. No given vomiting. No change in bowels. No history of UTIs or known Pseudomonas infections. 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 She reports no acute skin swelling or hives. In the ER CT abdomen/pelvis with contrast concerning for moderate to severe right-sided hydroureteronephrosis without obstructing calculus. With right- sided flank pain she was diagnosed with acute pyelonephritis and started on IV 2g ceftriaxone. While in the ER she spiked a temperature of 39.4 C with associated tachycardia that time. Case was discussed with urology by the ER provider - no emergent intervention was recommended. She was referred to medicine for admission. Principal Diagnosis 1. sepsis 2nd UTI with right-sided pyelonephritis 2. severe right-sided hydroureteronephrosis s/p stent placement Discharge Exam Constitutional well developed and well nourished; no acute distress and no altered mental status ENMT external ear and nose normal, oropharynx normal Respiratory normal respiratory effort, lungs clear to auscultation Cardiovascular Rate/Rhythm: regular rate and regular rhythm Heart Sounds: normal S1 and normal S2; no murmur Vessels: posterior tibial pulses present and dorsalis pedis pulses present; no JVD Extremities: no edema Gastrointestinal (Abdomen) normal bowel sounds, soft, nontender, no hepatosplenomegaly no flank pain or tenderness Psychiatric A+Ox3, euthymic affect Discharge Data Allergies Allergy/AdvReac Type Severity Reaction Status Date / Time furosemide AdvReac Intermediate Palpatation Verified 06/28/20 12:47 s Consultations [facility] Procedures Performed Operation Date: 06/23/20 12:35 Actual Procedures p Right Ureteral Stent Placement(Right) - Noman Holder MD s Cystoscopy, Right Retrograde Pyelogram(Right) - Noman Holder MD Ordered Studies 06/22/20 08:49 US renal/blad retro comp Stat 06/22/20 11:24 CT abd pelvis IV con only Stat IMPRESSION: 1. Moderate to severe right-sided hydroureteronephrosis and delayed nephrogram with dilation of the right ureter extending to the level of the reimplanted ureterovesicular junction. No obstructing calculus identified. These findings may be secondary to a distal ureteral stricture or urothelial lesion. 2. Urothelial thickening and enhancement of the right ureter may be reactive or represent superimposed infectious ureteritis. 3. Urinary bladder wall thickening with perivesicular stranding may represent cystitis. Correlate with urinalysis. 4. No bowel obstruction or bowel wall thickening. 06/23/20 14:30 FL KUB Routine FL fluoroscopy <1hr Routine Hospital Course (1) Sepsis: 2nd to UTI and right-sided pyelonephritis. Resolved with IV antibiotic therapy. Blood cultures remained negative. Urine culture with pansensitive e.coli. (2) Pyelonephritis of right kidney: 2nd to pansensitive e.coli. Initially received IV rocephin. Transitioned to oral cipro at discharge. IV/PO antibiotic course of 14 days advised. (3) Hydroureteronephrosis: In setting of prior right ureteral resection/reimplantation. She underwent these past urological procedures due to severe endometriosis. Dr. Holder of [facility] took to OR for cystoscopy, right retrograde pyelogram and stent placement. pre-OR COVID test negative. Will follow-up with [facility] post-discharge for stent management. (4) Mast cell activation syndrome: Continue cetirizine 10 mg p.o. daily, famotidine 40 mg p.o. twice daily. Total Time Total Time Spent Total Time Spent (In Minutes): 25 Total Time Includes: Examination of the Patient, Discharge Planning, Medication Reconciliation and Communication With Other Providers Discharge Plan Discharge Items Patient Disposition: Home - Self-Care Reason For Visit: ACUTE PYELONEPHRITIS (kidney infection) / UTI Discharge Diagnosis: 1. right-sided pyelonephritis - improving 2. UTI - improving 3. hydronephrosis on right - placement of ureteral stent by Dr Noman Holder Condition on Discharge: Good Activity: Resume your previous activity Lifting: Gradually increase as tolerated Bathing: No limitations Sexual Activity: When tolerated Exercise/Sports: Gradually increase as tolerated Driving/Machine Use: Resume 1 day after discharge Non-emergency contact: Primary Care Provider and Urologist Call non-emergency contact if: you have any medication questions, your symptoms worsen, your pain is worsening, you have a fever and your temperature is above 101 Follow-up/Referrals: Anup Holder MD [Physician] - ('s office will call patient with appointment date and time) Tayler William MD [Primary Care Provider] - 06/28/20 1:00 pm Diet: Regular Addtl Attending Provider Instructions: You were admitted to the hospital for urinary tract infection (UTI) and right- sided pyelonephritis (kidney infection). On your CAT scan severe hydronephrosis (swelling) was noted of the right ureter and kidney. [facility] saw you in consult, and on 06/23 Dr Holder placed a stent in your right ureter. Your blood cultures have remained negative while here. Your urine culture grew e.coli, a common urinary tract infection bacterium. You have received 3 days of IV antibiotics while hospitalized. Please complete 11 more days of oral antibiotics at home. Your antibiotic is cipro 500mg. Take twice daily starting tomorrow morning, 06/25/20. Also take a dedicated probiotic supplement to help prevent diarrhea from the cipro, and eat plenty of yogurt, for the next 2 weeks. Follow-up -- see separate section Return to [facility] if -- * you have persistent fevers over 101 degrees * you have severe diarrhea * you have severe back pain or flank pain * you have vomiting and can't keep anything down * you have significant, persistent blood in the urine * any other concerns Addtl Metallographic Technician Provider Instructions: You have a ureteral stent in place. This can cause some urinary frequency and urgency as well as burning and blood (hematuria). Dr. Holder's office will contact you to arrange for follow up. If you need to contact his office - the number is . Pending Studies at Discharge: Yes Studies:: blood cultures but thus far negative (no evidence of infection in the bloodstream) Stand-Alone Forms: My [facility] [employer], Smoking Cessation Medications and DC Order Prescriptions: New Saccharomyces boulardii 250 mg capsule 250 mg PO DAILY 14 Days Qty: 14 RF: 0 Continued epinephrine 0.3 mg/0.3 mL auto-injector 0.3 mg IM Q10M PRN (Reason: anaphylaxis) Qty: 2 RF: 1 multivitamin [Daily Multi-Vitamin] Tablet 1 tab PO DAILY RF: 0 Zyrtec 10 mg capsule 10 mg PO DAILY RF: 0 famotidine 40 mg tablet 40 mg PO BID Qty: 60 RF: 2 cholecalciferol (vitamin D3) [Vitamin D3] 125 mcg (5,000 unit) Tablet 125 mcg PO DAILY RF: 0 vitamin K2 40 mcg Tablet 40 mcg PO DAILY RF: 0 calcium carbonate-vitamin D3 600 mg(1,500mg) -200 unit Tablet 1 tab PO DAILY RF: 0 Discharge Orders: Discharge Order (Routine); Ordered 06/24/20 Ordered By: Godwin Benton/Other Patient Handouts: Having a Ureteral Stent Admission Data Admit Date/Time: 06/22/20 14:50 Attending Provider: Godwin Dunn Admit Provider: Godwin Maya Primary Care Provider: Tayler William Other Providers: Godwin Maya ; Anup Holder Other Interventions: Discharge Summary Assessment (RN) Last Done: 06/24/20 11:48 Coding Level of Care Code D/C Day Management <30 mins Diagnoses Sepsis A41.9 Sepsis acute organ dysfunction status: without acute organ dysfunction Sepsis type: sepsis due to unspecified organism Pyelonephritis of right kidney N12 Hydroureteronephrosis N13.30 Mast cell activation syndrome D89.40
--- NOTE | 2020-07-07 08:29 | Coding Query ---
CODING QUERY To promote full compliance with coding requirements relating to patient care, provider participation is requested in all cases of cpc coder uncertainty. Please assist us with the question(s) below: Coding Question(s): There is documentation in chart and Discharge Summary of, "Hydroureteronephrosis: In setting of prior right ureteral resection/reimplantation". Please clarify below, in your clinical opinion. ( ) Hydronephrosis in setting of prior right ureteral resection/reimplantation is likely a Postoperative Complication ( x ) Hydronephrosis in setting of prior right ureteral resection/reimplantation is NOT likely a Postoperative Complication ( ) Other: Please Specify Physician's Response(s): Thank you Zakiya Urena Principal Diagnosis: "that condition established after study, to be chiefly responsible for occasioning the admission of the patient to the hospital for care." Co-Existing Principal Diagnosis: "when two or more diagnoses equally meet the criteria for principal diagnosis as determined by the circumstances of admission, diagnostic work up, and/or therapy provided, and the Alphabetic Index, Tabular List, or another coding guideline does not provide sequencing direction, any one of the diagnoses may be sequenced first." "When the physician has documented what appears to be a current diagnosis in the body of the record, but has not included the diagnosis in the final diagnostic statement, the physician should be asked whether the diagnosis should be added." (Source Coding Clinic 2 QTR90. p3-4) RUTHIE
== END 2020-06-24 12:30 | disposition home or self-care (01) | DRG 854 ==
LOC: ED 07:55 → 3N 14:50 → SUATTDRO 14:50 → 3N 15:47